=== PATIENT | female | born 1950 | race Caucasian/White ===

== ENCOUNTER 2020-01-22 08:33 | Outpatient (REF) | payer MEDICARE, SELFPAY ==
--- NOTE | 2020-01-22 | US_ITS ---
EXAMINATION: THYROID ULTRASOUND CLINICAL INFORMATION: Multinodular goiter COMPARISON: Previous exam April 2018 TECHNIQUE: Grayscale and color imaging of the thyroid gland using a linear transducer FINDINGS: The right lobe measures 4.2 x 1.2 x 1.6 cm, volume 4.2 mL. The right lobe is normal in size. Thyroid echotexture is heterogeneous. Thyroid vascularity is normal. The left lobe measures 4.5 x 1 x 1.8 cm, volume 4.2 mL. The left lobe is normal in size. Thyroid echotexture is heterogeneous. Thyroid vascularity is slightly increased. The thyroid isthmus measures 0.3 cm. Right: There are multiple nodules seen. Comparison of nodules with prior exam is difficult. The 4 largest nodules are measured. There is a heterogeneous nodule in the inferior lobe. This measures 1.1 x 0.6 x 0.7 cm. This measured 0.7 x 0.9 x 0.7 cm on previous exam. This is heterogeneous and hypoechoic, has smooth margin, question calcification and positive intranodular flow. There is a 1 x 0.4 x 0.7 cm heterogeneous nodule in the mid lobe. This has smooth margin, no calcification and positive intranodular flow. This was not appreciated on previous exam. There is a 1 x 0.3 x 0.5 cm heterogeneous nodule in the upper lobe. This has irregular margin, no calcification and positive intranodular flow. There is a 0.5 x 0.3 x 0.5 cm heterogeneous nodule in the upper lobe. This has smooth margin, no calcification and positive intranodular flow. This was not appreciated on the previous exam. Isthmus: There is a 0.5 x 0.2 x 0.5 cm hypoechoic nodule in the left side of the isthmus. This has smooth margin, no calcification and positive intranodular flow. This is newly appreciated compared to previous exam. Left: There are multiple nodules seen. Comparison of nodules with prior exam is difficult. The 4 largest nodules are measured. There is a 0.7 x 0.4 x 0.6 cm heterogeneous nodule in the upper lobe. This has smooth margin, no calcification and positive intranodular flow. This was not appreciated on the previous exam. There is a 0.9 x 0.5 x 0.7 cm heterogeneous nodule in the upper lobe. This has slightly irregular margin, calcification and positive intranodular flow. This was not appreciated on the previous exam. There is a 0.6 x 0.3 x 0.6 cm heterogeneous nodule in the mid lobe. This has slightly irregular margin, calcification and positive intranodular flow. This was not appreciated on the previous exam. There is a 0.9 x 0.5 x 0.8 cm complex cystic nodule in the inferior lobe. This has smooth margin, no calcification and positive intranodular flow. This measured 0.8 x 0.5 x 0.6 cm on prior exam and may be minimally increased in size. IMPRESSION: Normal-sized heterogeneous thyroid gland with multiple bilateral nodules. The left lobe is slightly hypervascular. Comparison with previous exam is difficult and there are multiple bilateral newly appreciated nodules compared to the prior exam.
== END 2020-01-22 08:34 | disposition home or self-care (01) ==
LOC: HO.US 08:33
PROVIDERS: Visit Provider Internal Medicine
DX: E04.2 Nontoxic multinodular goiter (principal)
CPT/HCPCS: 76536

== ENCOUNTER 2020-02-04 13:03 | Outpatient (REF) | payer MEDICARE, SELFPAY | END 2020-02-04 13:04 | disposition home or self-care (01) | LOC: HO.LAB 13:03 | PROVIDERS: Visit Provider Internal Medicine | DX: Z20.828 Contact with and (suspected) exposure to other viral communicable diseases (principal) | CPT/HCPCS: 87635 ==

== ENCOUNTER 2020-03-07 16:59 | Emergency (ER) | payer MEDICARE, SELFPAY ==
--- NOTE | 2020-03-07 17:03 | ECG_ITS ---
Test Reason : CP Blood Pressure : / mmHG Vent. Rate : 070 BPM Atrial Rate : 070 BPM P-R Int : 162 ms QRS Dur : 078 ms QT Int : 378 ms P-R-T Axes : 053 042 056 degrees QTc Int : 408 ms Normal sinus rhythm Normal ECG When compared with ECG of 24-AUG-2004 08:32, No significant change was found Referred By: Generic ED Physician Electronically Signed By:GI WHITE MD
[2020-03-07 17:25] VITALS: BP 152/77; PULSE 76; RESP 18; TEMP 36.6; O2SAT 100; BMI 60.5
[2020-03-07 18:02] VITALS: BP 137/88; PULSE 76; O2SAT 98
--- NOTE | 2020-03-07 18:29 | XR_ITS ---
EXAMINATION: XR CHEST CLINICAL INFORMATION: Chest pain COMPARISON: None TECHNIQUE: Frontal view of the chest was obtained. FINDINGS: Multiple wires overlie the chest. Lungs are clear without consolidation, pleural effusion or pneumothorax. Cardiomediastinal silhouette is unremarkable. XR/XR chest 1V IMPRESSION: No acute cardiopulmonary process.
[2020-03-07] MEDS: Aspirin 81 MG TAB.CHEW 324 MG PO (18:36)
--- NOTE | 2020-03-07 18:41 | ED.CHESTPAIN ---
HPI - Chest Pain General Chief Complaint: Chest Pain Stated Complaint: Chest pain Time Seen by Provider: 03/07/20 18:28 Source: patient Mode of arrival: ambulatory Limitations: no limitations History of Present Illness HPI narrative: patient history of hypertension no known coronary artery disease no history of gastritis been complaining of epigastric substernal pain for last 1 week with nausea. No diaphoresis no shortness of breath no known history of gastriti, s patient had a stress test in 2013-grecia [facility] complaint: chest pain Onset (ago): week(s) (1) Timing of current episode: episodic Prior episodes: No Onset: during rest Pain location: substernal and epigastric Pain radiation: none Severity: mild Quality: aching Relieving factors: nothing Exacerbating factors: nothing Context: recent illness Associated symptoms: nausea Treatment prior to arrival: none Related Data Previous Rx's Medication Instructions Recorded omeprazole 40 mg PO DAILY #20 cap 03/07/20 Allergies Allergy/AdvReac Type Severity Reaction Status Date / Time suvorexant [Belsomra] AdvReac Unknown increased Verified 03/07/20 17:25 anxiety Review of Systems Review of Systems: REVIEW OF SYSTEMS: Pertinent positives and negatives are stated above in the history. GEN: no fevers, chills, fatigue HEENT: no nasal congestion, sore throat, ear pain NEURO: no headache, dizziness, focal weakness PULM: no cough, shortness of breath CV: no palpitations, LE edema ABD: no abdominal pain, nausea, vomiting, diarrhea : no dysuria, urgency, frequency SKIN: no rash ROS otherwise negative x 10 PMFSH Past Medical History Medical History Anxiety High cholesterol HTN (hypertension) Social History Social History Alcohol intake: current Alcohol intake frequency: a few times a week Alcohol type: wine Smoking Status: Never smoker Use of substances other than those prescribed or required for medical reasons: No Advance Directives: No Advance Directives Information Provided: No Physical Exam Vital Signs: Vital Signs: Last Vital Signs Temp 98.2 F 03/07/20 19:20 Pulse 74 03/07/20 19:20 Resp 16 03/07/20 19:20 BP 149/78 H 03/07/20 19:20 Pulse Ox 96 11/23/20 19:20 Body Mass Index 60.5 Appearance: Alert. Oriented X3. No acute distress. Eyes: Pupils equal, round and reactive to light. ENT: Pharynx normal. Neck: Normal inspection. Neck supple. CVS: Normal heart rate and rhythm. Pulses normal. Respiratory: No respiratory distress. Breath sounds normal. Abdomen: Soft and nontender. Skin: Skin warm and dry. Normal skin color. Normal skin turgor. Extremities: No lower extremity edema. Good range of movement Neuro: Oriented X 3. No motor deficit. No sensory deficit. MDM - Chest Pain MDM Narrative Medical decision making narrative: patient with chest pain of 1 week duration high sensitive troponin negative no acute EKG changes etiology of pain is not very clear likely gastritis patient advised to follow-up with primary care doctor/certified athletic trainer for further workup including echo Differential Diagnosis Differential diagnosis: Likely atypical chest pain, costochondritis, chest pain and biliary colic Medical Records Data Attestation: I reviewed the patient's medical records. Lab Data Attestation: I reviewed the patient's lab results. Result diagrams: 03/07/20 18:40 03/07/20 18:40 Labs: Lab Results 03/07/20 03/07/20 03/07/20 Range/Units 18:40 18:40 18:40 WBC 7.4 (4.8-10.8) X10*3/uL RBC 4.22 (4.20-5.50) X10*6/uL Hgb 12.9 (12.0-16.0) g/dl Hct 39.3 (37-47) % MCV 93.1 (80-98) fL MCH 30.6 (27.0-33.0) pg MCHC 32.8 (31.0-35.0) g/dl RDW 12.0 (11.0-16.0) % Plt Count 301 (160-400) X10*3/uL MPV 9.5 (9.4-12.3) fL Immature Gran % (Auto) 0.3 (0.0-0.4) % Neut % (Auto) 68.3 (45-73) % Lymph % (Auto) 23.2 (20-40) % [place] % (Auto) 7.6 (2-11) % Eos % (Auto) 0.5 (0-4) % Baso % (Auto) 0.1 (0-2) % Lymph # (Auto) 1.7 (1.2-4.9) X10*3/uL [place] # (Auto) 0.6 (0.1-1.2) X10*3/uL Eos # (Auto) 0.0 (0.0-0.4) X10*3/uL Baso # (Auto) 0.0 (0.0-0.2) X10*3/uL Abs Immat Gran (auto) 0.02 (0.00-0.03) X10*3/uL Absolute Neuts (auto) 5.1 (2.0-8.3) X10*3/uL Absolute Nucleated RBC 0.000 (0.0-0.012) X10*3/uL Nucleated RBC % (auto) 0.0 (0.0-0.2) /100WBC PT 11.1 (10.8-13.0) SEC INR 0.9 (0.9-1.1) APTT 32.3 (24.1-38.0) SEC Sodium 138 (135-145) mmol/L Potassium 4.9 (3.3-5.1) mmol/l Chloride 105 (96-108) mmol/L Carbon Dioxide 26 (22-29) mmol/L Anion Gap 12 (12-20) BUN 11 (9-16) mg/dL Creatinine 0.64 (0.5-1.4) mg/dL Estim Creat Clear Calc 120.6 Estimated GFR > 60 Random Glucose 90 (60-115) mg/dL Calcium 9.8 (8.4-10.2) mg/dL Troponin I High Sens (<3.5-17.0) ng/L 03/07/20 Range/Units 18:41 WBC (4.8-10.8) X10*3/uL RBC (4.20-5.50) X10*6/uL Hgb (12.0-16.0) g/dl Hct (37-47) % MCV (80-98) fL MCH (27.0-33.0) pg MCHC (31.0-35.0) g/dl RDW (11.0-16.0) % Plt Count (160-400) X10*3/uL MPV (9.4-12.3) fL Immature Gran % (Auto) (0.0-0.4) % Neut % (Auto) (45-73) % Lymph % (Auto) (20-40) % [place] % (Auto) (2-11) % Eos % (Auto) (0-4) % Baso % (Auto) (0-2) % Lymph # (Auto) (1.2-4.9) X10*3/uL [place] # (Auto) (0.1-1.2) X10*3/uL Eos # (Auto) (0.0-0.4) X10*3/uL Baso # (Auto) (0.0-0.2) X10*3/uL Abs Immat Gran (auto) (0.00-0.03) X10*3/uL Absolute Neuts (auto) (2.0-8.3) X10*3/uL Absolute Nucleated RBC (0.0-0.012) X10*3/uL Nucleated RBC % (auto) (0.0-0.2) /100WBC PT (10.8-13.0) SEC INR (0.9-1.1) APTT (24.1-38.0) SEC Sodium (135-145) mmol/L Potassium (3.3-5.1) mmol/l Chloride (96-108) mmol/L Carbon Dioxide (22-29) mmol/L Anion Gap (12-20) BUN (9-16) mg/dL Creatinine (0.5-1.4) mg/dL Estim Creat Clear Calc Estimated GFR Random Glucose (60-115) mg/dL Calcium (8.4-10.2) mg/dL Troponin I High Sens < 3.5 (<3.5-17.0) ng/L ECG Data ECG #1: Attestation: I personally reviewed and interpreted this ECG as follows: ECG interpretation date: 03/07/20 Interpretation: no sinus rhythm with heart rate of 70 normal axis normal intervals no acute ST T wave changes no acute ischemia Discharge Plan Discharge Clinical Impression: Chest pain, Gastritis Patient Disposition: Home, Self-Care Instructions: Chest Pain (ED), Gastritis (ED) Additional Instructions: take baby aspirin daily. Take medication for possible gastritis as a cause of chest pain. Follow-up with primary care doctor/certified athletic trainer for further workup within 2 weeks Prescriptions: New omeprazole 40 mg capsule,delayed release(DR/EC) 40 mg PO DAILY Qty: 20 RF: 0 Referrals: Ozzie Pope MD [Physician] - 1 week Interventions: ED Discharge Assessment Last Done: 03/07/20 20:51 Discharge Date/Time: 03/07/20 20:52
[2020-03-07 18:48] LABS: MANUAL DIFF FLAG NO
[2020-03-07 18:52] LABS: Basophils Percent Auto 0.1 % (0-2); Eosinophils Percent Auto 0.5 % (0-4); Hematocrit 39.3 % (37-47); Hemoglobin 12.9 g/dl (12.0-16.0); Imm Gran Abs Auto 0.02 X10*3/uL (0.00-0.03); Imm Gran Pct Auto 0.3 % (0.0-0.4); Lymphocytes Absolute Auto 1.7 X10*3/uL (1.2-4.9); Lymphocytes Percent Auto 23.2 % (20-40); Mean Corpuscular HGB Conc 32.8 g/dl (31.0-35.0); Mean Corpuscular Hemoglobin 30.6 pg (27.0-33.0); Mean Corpuscular Volume 93.1 fL (80-98); Mean Platelet Volume 9.5 fL (9.4-12.3); Monocytes Absolute Auto 0.6 X10*3/uL (0.1-1.2); Monocytes Percent Auto 7.6 % (2-11); Neutrophils Absolute Auto 5.1 X10*3/uL (2.0-8.3); Neutrophils Percent Auto 68.3 % (45-73); Platelet Count 301 X10*3/uL (160-400); Red Blood Count 4.22 X10*6/uL (4.20-5.50); White Blood Count 7.4 X10*3/uL (4.8-10.8)
[2020-03-07 18:53] LABS: INTERNATIONAL NORM RATIO 0.9 (0.9-1.1); Prothrombin Time 11.1 SEC (10.8-13.0)
[2020-03-07 18:56] LABS: Partial Thromboplastin Time 32.3 SEC (24.1-38.0)
[2020-03-07 19:20] VITALS: BP 149/78; PULSE 74; RESP 16; TEMP 36.8; O2SAT 96
[2020-03-07 19:22] LABS: Anion Gap 12 (12-20); Blood Urea Nitrogen 11 mg/dL (9-16); Calcium 9.8 mg/dL (8.4-10.2); Carbon Dioxide 26 mmol/L (22-29); Chloride 105 mmol/L (96-108); Creatinine Clr Calc Pharmacy 120.6; Estimated Glomerular Filt Rate > 60; Glucose Random 90 mg/dL (60-115); Potassium 4.9 mmol/l (3.3-5.1); Sodium 138 mmol/L (135-145)
[2020-03-07 19:28] LABS: Troponin-I High Sensitivity < 3.5 ng/L (<3.5-17.0)
[2020-03-07] MEDS: Famotidine/PF 20 MG/2 ML VIAL IVPUSH (20:01)
== END 2020-03-07 20:52 | disposition home or self-care (01) ==
PROVIDERS: Emergency Provider Internal Medicine; PCP Internal Medicine
DX: K29.00 Acute gastritis without bleeding (principal); R07.89 Other chest pain; I10 Essential (primary) hypertension; Z79.899 Other long term (current) drug therapy
CPT/HCPCS: 36415; 71045; 80048; 84484; 85025; 85610; 85730; 93005; 96374; 99284

== ENCOUNTER 2020-03-08 12:15 | Outpatient (REF) | payer MEDICARE, SELFPAY | END 2020-03-08 12:16 | disposition home or self-care (01) | LOC: HO.LAB 12:15 | PROVIDERS: Visit Provider Internal Medicine | DX: Z20.828 Contact with and (suspected) exposure to other viral communicable diseases (principal) | CPT/HCPCS: C9803; U0003 ==

== ENCOUNTER → 2020-03-16 08:55 | Outpatient (REF) | payer MEDICARE, SELFPAY ==
--- NOTE | 2020-03-16 09:01 | CA_ITS ---
Acquisition Time: 2020-03-16 10:05:28 Total Exercise Time: 00:06:58 Test Indications: CHEST PAIN Medications: Protocol: EHSAN Max HR: 151 BPM 100% of Pred: 150 BPM Max BP: 140/080 mmHG Max Work Load: 8.4 METS Exercise stress test suing Ehsan protocol, total of 6 min 58 sec, METS 8.4 and MHR up to 100%. Pt tolerated well, denies any anginal sx. EKG with occ. PVC's. No ischemic changes seen during exercise or in recovery period. Normotensive response to exercise. Test reviewed with Dr. Pope. Referred By: Jose Alfredo Pandey Overread By: Reza Oliveira
== END ==
LOC: HO.CARD 08:55
PROVIDERS: PCP Internal Medicine; Visit Provider Internal Medicine
DX: R07.9 Chest pain, unspecified (principal)
CPT/HCPCS: 93017

== ENCOUNTER 2020-03-18 09:04 | Outpatient (REF) | payer MEDICARE, SELFPAY ==
[2020-03-18 10:39] LABS: Alanine Aminotransferase 21 U/L (0-31); Albumin Level 4.2 g/dL (3.5-5.0); Alkaline Phosphatase 111 U/L (39-117); Anion Gap 13 (12-20); Aspartate Amino Transferase 24 U/L (5-31); Bilirubin Total 0.5 mg/dL (0.0-1.0); Blood Urea Nitrogen 19 mg/dL (9-16); Calcium 9.1 mg/dL (8.4-10.2); Carbon Dioxide 23 mmol/L (22-29); Chloride 108 mmol/L (96-108); Estimated Glomerular Filt Rate > 60; Glucose Random 119 mg/dL (60-115); Potassium 4.5 mmol/l (3.3-5.1); Sodium 139 mmol/L (135-145); Total Protein 6.4 g/dL (6.5-8.0)
[2020-03-18 11:03] LABS: Vitamin D 25-OH Total 33.6 ng/mL (>30)
[2020-03-20 14:03] LABS: Calcium (PTHI) 9.8 mg/dL (8.6-10.4); PTHI 36 pg/mL (14-64)
== END 2020-03-18 09:05 | disposition home or self-care (01) ==
LOC: HO.LAB 09:04
PROVIDERS: PCP Internal Medicine; Visit Provider Internal Medicine
DX: M81.0 Age-related osteoporosis without current pathological fracture (principal); E55.9 Vitamin D deficiency, unspecified
CPT/HCPCS: 80053; 82306; 83970; 84100

== ENCOUNTER 2020-03-22 10:15 | Outpatient (REF) | payer MEDICARE, SELFPAY ==
[2020-03-22 11:12] LABS: Creatinine, mg/dL 39.54
[2020-03-22 11:37] LABS: Creatinine, 24Hr Urine 0.9 G/Day (1.0-2.0); Total Volume 24 Hour Urine 2225 mL
[2020-03-24 17:08] LABS: Calcium, 24 Hr Urine 120 mg/24 h; Calcium/Creatinine Ratio 132 mg/g creat (30-275); Creatinine 24Hr Urine 0.91 g/24 h (0.50-2.15)
== END 2020-03-22 10:16 | disposition home or self-care (01) ==
LOC: HO.LNP 10:15
PROVIDERS: Visit Provider Internal Medicine
DX: M81.0 Age-related osteoporosis without current pathological fracture (principal)
CPT/HCPCS: 82340; 82570

== ENCOUNTER 2020-04-18 10:40 | Outpatient (REF) | payer MEDICARE, SELFPAY | END 2020-04-18 10:41 | disposition home or self-care (01) | LOC: HO.LAB 10:40 | PROVIDERS: Visit Provider Internal Medicine | DX: Z20.828 Contact with and (suspected) exposure to other viral communicable diseases (principal) | CPT/HCPCS: 36415; C9803; U0003 ==

== ENCOUNTER 2020-04-29 09:27 | Outpatient (REF) | payer MEDICARE, SELFPAY | END 2020-04-29 09:28 | disposition home or self-care (01) | LOC: HO.LAB 09:27 | PROVIDERS: Visit Provider Internal Medicine | DX: Z20.822 Contact with and (suspected) exposure to COVID-19 (principal) | CPT/HCPCS: 36415; C9803; U0003 ==

== ENCOUNTER → 2020-05-04 14:03 | Outpatient (BNVA) | payer MEDICARE, SELFPAY | PROVIDERS: PCP Internal Medicine; Visit Provider Internal Medicine | DX: R07.2 Precordial pain (principal); I10 Essential (primary) hypertension; E78.5 Hyperlipidemia, unspecified | CPT/HCPCS: 99202 ==

== ENCOUNTER 2020-05-13 08:52 | Outpatient (REF) | payer MEDICARE, SELFPAY ==
[2020-05-13 09:47] LABS: MANUAL DIFF FLAG NO
[2020-05-13 09:56] LABS: Basophils Percent Auto 0.2 % (0-2); Eosinophils Absolute Auto 0.1 X10*3/uL (0.0-0.4); Eosinophils Percent Auto 1.1 % (0-4); Hematocrit 41.7 % (37-47); Hemoglobin 13.6 g/dl (12.0-16.0); Imm Gran Abs Auto 0.01 X10*3/uL (0.00-0.03); Imm Gran Pct Auto 0.2 % (0.0-0.4); Lymphocytes Absolute Auto 1.6 X10*3/uL (1.2-4.9); Lymphocytes Percent Auto 33.8 % (20-40); Mean Corpuscular HGB Conc 32.6 g/dl (31.0-35.0); Mean Corpuscular Hemoglobin 30.6 pg (27.0-33.0); Mean Corpuscular Volume 93.7 fL (80-98); Monocytes Absolute Auto 0.4 X10*3/uL (0.1-1.2); Monocytes Percent Auto 7.5 % (2-11); Neutrophils Absolute Auto 2.7 X10*3/uL (2.0-8.3); Neutrophils Percent Auto 57.2 % (45-73); Platelet Count 331 X10*3/uL (160-400); Red Blood Count 4.45 X10*6/uL (4.20-5.50); Red Cell Distribution Width 12.1 % (11.0-16.0); White Blood Count 4.7 X10*3/uL (4.8-10.8)
[2020-05-13 10:17] LABS: Alanine Aminotransferase 35 U/L (0-31); Albumin Level 4.3 g/dL (3.5-5.0); Alkaline Phosphatase 72 U/L (39-117); Anion Gap 11 (12-20); Aspartate Amino Transferase 32 U/L (5-31); Bilirubin Total 0.9 mg/dL (0.0-1.0); Blood Urea Nitrogen 13 mg/dL (9-16); Carbon Dioxide 28 mmol/L (22-29); Chloride 106 mmol/L (96-108); Cholesterol 147 mg/dL; Estimated Glomerular Filt Rate > 60; Glucose Fasting 89 mg/dL (60-99); HDL Cholesterol 47 mg/dL; LDL Cholesterol Calculated 81 mg/dl; Potassium 4.3 mmol/l (3.3-5.1); Sodium 141 mmol/L (135-145); Total Protein 6.2 g/dL (6.5-8.0); Triglycerides 98 mg/dL
[2020-05-13 10:26] LABS: Estimated Average Glucose 94 mg/dL; Hemoglobin A1c % 4.9 %
[2020-05-13 10:40] LABS: Free T4 (Free Thyroxine) 0.77 ng/dL (0.71-1.85); Thyroid Stimulating Hormone 1.04 uIU/mL (0.32-4.0)
== END 2020-05-13 08:53 | disposition home or self-care (01) ==
LOC: HO.LAB 08:52
PROVIDERS: PCP Internal Medicine; Visit Provider Internal Medicine
DX: I10 Essential (primary) hypertension (principal); E78.00 Pure hypercholesterolemia, unspecified; R73.01 Impaired fasting glucose; E04.2 Nontoxic multinodular goiter
CPT/HCPCS: 36415; 80053; 80061; 83036; 84439; 84443; 85025

== ENCOUNTER → 2020-06-01 13:52 | Outpatient (REF) | payer MEDICARE, SELFPAY ==
--- NOTE | 2020-06-01 13:54 | CA_ITS ---
Transthoracic Echocardiogram Patient (Last, First, Middle): Elham Almonte K Gender: Female Date of : 1950 Age: 69 Procedure Date: 06/01/2020 Procedure Type: Transthoracic Echocardiogram Location: OP Height: 160.02 cm Weight: 65.77 kg BSA: 1.69 m2 Heart Rate: bpm Warehouse Processor: ANDREINA Referring MD: Morteza Dorsey MD Wrapper Hands Sprayer: Ozzie Pope MD Symptoms: R07.2 - Precordial pain Study Quality: Good ECG Rhythm: Sinus Conclusions: - 1. Normal LV systolic function grade 1 diastolic dysfunction 2. Normal cardiac valvular Doppler 3. Normal RV systolic pressure 4. No pericardial effusion Findings Left Ventricle Normal left ventricular size, thickness, and systolic function. The visually estimated ejection fraction is between 60-65%. Spectral Doppler is indicative of an impaired relaxation filling pattern. E/E prime ratio is <8, consistent with normal filling pressures. Evidence suggests grade I (mild) diastolic dysfunction. Right Ventricle Normal right ventricular cavity size and systolic function. Atria Both atria are normal in size. There is no evidence of interatrial shunt. Aortic Valve Normal aortic valve structure and function. There is no aortic valve stenosis. There is no aortic valve regurgitation. Mitral Valve Normal mitral valve structure and function. There is trace mitral valve regurgitation. There is no mitral valve stenosis. Pulmonic Valve The pulmonic valve was not well visualized. Tricuspid Valve Likely normal tricuspid valve structure and function. There is trace tricuspid valve regurgitation. The right ventricular systolic pressure is normal. The right ventricular systolic pressure is 18 mmHg. There is no evidence of pulmonary hypertension. Great Vessels All visible segments of the aorta are normal in size. Small plaque is seen in the sino tubular ridge. Venous The inferior vena cava is normal in size and collapses greater than 50% with inspiration. Pericardium/Pleural There is no evidence of pericardial effusion. Prior Study Comparison No previous study in the last 5 years for comparison Measurements 2D Linear Measurements IVSd: 0.93 0.6-0.9/0.6-1.0 cm LVIDd: 3.91 3.9-5.3/4.2-5.9 cm LVIDd Index: 2.31 2.4-3.2/2.2-3.1 cm/m2 LVIDs: 2.24 2.0-3.6 cm LVPWd: 0.83 0.7-1.1 cm Ao Root: 3.40 2.1-3.5 cm LA Diam: 3.10 2.7-3.8/3.0-4.0 cm LAIDs Index: 1.83 1.5-2.3 cm/m2 LV Mass: 127.41 67-162/88-224 g LV Mass Index: 75.39 43-95/49-115 g/m2 LVOT Diam: 2.20 3.0+(-)1.3 cm 2D Systolic Function EF 4C: 66.30 >55% EF 2C: 53.90 >55% EF BiP: 60.90 >55% Mitral Valve MV Pk E: 0.56 MV PK A: 0.69 MV Decel Time: 332.00 E/A: 0.80 E'Lateral: 12.60 E'Medial: 14.10 E/E' Med: 4.00 E/E' Lat: 4.50 PHT: 97.00 MVA PHT: 2.27 Decel [place]: 1.69 Aortic Valve AoV Pk Willian: 1.31 AoV Mn Willian: 0.83 AoV VTI: 0.28 AoV Pk Grad: 7.00 Aov Mn Grad: 3.00 ALAN Cont.VTI: 3.06 LVOT LVOT Pk Willian: 1.22 LVOT Mn Willian: 0.75 LVOT VTI: 0.23 LVOT Pk Grad: 6.00 LVOT Mn Grad: 3.00 LVOT Diam: 2.20 LVOT Area: 3.80 Diastolic Function MV Pk E: 0.56 MV Pk A: 0.69 E/A: 0.80 E'Medial: 14.10 E/E' Med: 4.00 E' Laterial: 12.60 E/E' Lat: 4.50 Tricuspid Valve TR Pk Willian: 1.96 TR Pk Grad: 15.00 RA Press: 3.00 RVSP: 18.00 Great Vessels Aorta Ao Root-2D: 3.40 2.0-3.7 cm Ao Asc: 3.80 2.1-3.4 cm Pulmonary Valve PV Pk Willian: 0.91 Peak PV Grad: 3.00 Updated in Other Vendor System with Status of Final Ozzie Pope MD electronically signed on 06/02/2020 1:10:54 PM with status of Final
== END ==
LOC: HO.CARD 13:52
PROVIDERS: PCP Internal Medicine; Visit Provider Internal Medicine
DX: R07.2 Precordial pain (principal)
CPT/HCPCS: 93306

== ENCOUNTER → 2020-06-07 08:16 | Outpatient (BNVA) | payer MEDICARE, SELFPAY | PROVIDERS: PCP Internal Medicine; Visit Provider Internal Medicine | DX: R07.2 Precordial pain (principal); I10 Essential (primary) hypertension; E78.5 Hyperlipidemia, unspecified | CPT/HCPCS: Q3014 ==

== ENCOUNTER → 2020-07-04 10:07 | Outpatient (BNVA) | payer MEDICARE, SELFPAY | PROVIDERS: PCP Internal Medicine; Visit Provider Internal Medicine ==

== ENCOUNTER 2020-07-18 15:58 | Outpatient (REF) | payer MEDICARE, SELFPAY ==
[2020-07-19 11:19] LABS: SARS COV2 PCR INHOUSE NEGATIVE (Negative)
== END 2020-07-18 15:59 | disposition home or self-care (01) ==
LOC: HO.LAB 15:58
PROVIDERS: Visit Provider Internal Medicine
DX: Z20.822 Contact with and (suspected) exposure to COVID-19 (principal)
CPT/HCPCS: C9803; U0003

== ENCOUNTER → 2020-08-29 09:59 | Outpatient (BNVA) | payer MEDICARE, SELFPAY | PROVIDERS: PCP Internal Medicine; Visit Provider Internal Medicine | DX: Z13.89 Encounter for screening for other disorder (principal) | CPT/HCPCS: Q3014 ==

== ENCOUNTER 2020-09-08 09:18 | Outpatient (REF) | payer MEDICARE, SELFPAY ==
[2020-09-08 10:33] LABS: MANUAL DIFF FLAG NO
[2020-09-08 10:37] LABS: Appearance Urine CLOUDY; Color Urine DARK YELLOW; Glucose Urine UA NEG (NEG); Leukocyte Esterase Urine 2+ (NEG); Nitrite Urine NEG (NEG); UACC Culture Trigger YES; Urine Blood NEG (NEG); Urine Ketones 15 MG/DL (NEG); Urine Protein TRACE MG/DL (NEG-TRACE)
[2020-09-08 10:47] LABS: Bacteria Urine 2+ /LPF; Eosinophils Percent Auto 0.1 % (0-4); Hematocrit 41.6 % (37-47); Hemoglobin 13.8 g/dl (12.0-16.0); Imm Gran Abs Auto 0.02 X10*3/uL (0.00-0.03); Imm Gran Pct Auto 0.3 % (0.0-0.4); Lymphocytes Absolute Auto 1.6 X10*3/uL (1.2-4.9); Lymphocytes Percent Auto 21.4 % (20-40); Mean Corpuscular HGB Conc 33.2 g/dl (31.0-35.0); Mean Corpuscular Hemoglobin 30.9 pg (27.0-33.0); Mean Corpuscular Volume 93.1 fL (80-98); Mean Platelet Volume 9.7 fL (9.4-12.3); Monocytes Absolute Auto 0.5 X10*3/uL (0.1-1.2); Monocytes Percent Auto 6.8 % (2-11); Mucus Urine TRACE /LPF; Neutrophils Absolute Auto 5.4 X10*3/uL (2.0-8.3); Neutrophils Percent Auto 71.4 % (45-73); Platelet Count 362 X10*3/uL (160-400); RBC Urine 0 /HPF (0); Red Blood Count 4.47 X10*6/uL (4.20-5.50); Red Cell Distribution Width 12.5 % (11.0-16.0); Squamous Epithelial Cell Urine 4+ /LPF; White Blood Count 7.6 X10*3/uL (4.8-10.8)
[2020-09-08 11:09] LABS: Alanine Aminotransferase 32 U/L (0-31); Albumin Level 4.4 g/dL (3.5-5.0); Alkaline Phosphatase 77 U/L (39-117); Anion Gap 15 (12-20); Aspartate Amino Transferase 33 U/L (5-31); Bilirubin Total 0.9 mg/dL (0.0-1.0); Blood Urea Nitrogen 10 mg/dL (9-16); Calcium 9.8 mg/dL (8.4-10.2); Carbon Dioxide 25 mmol/L (22-29); Chloride 103 mmol/L (96-108); Cholesterol 159 mg/dL; Estimated Glomerular Filt Rate > 60; Glucose Fasting 85 mg/dL (60-99); HDL Cholesterol 62 mg/dL; LDL Cholesterol Calculated 81 mg/dl; Potassium 4.6 mmol/L (3.3-5.1); Sodium 138 mmol/L (135-145); Total Protein 6.6 g/dL (6.5-8.0); Triglycerides 80 mg/dL
[2020-09-08 11:35] LABS: Free T4 (Free Thyroxine) 0.94 ng/dL (0.71-1.85); Thyroid Stimulating Hormone 0.87 uIU/mL (0.32-4.0); Vitamin D 25-OH Total 35.7 ng/mL (>30)
== END 2020-09-08 09:19 | disposition home or self-care (01) ==
LOC: HO.LAB 09:18
PROVIDERS: PCP Internal Medicine; Visit Provider Internal Medicine
DX: E78.00 Pure hypercholesterolemia, unspecified (principal); I10 Essential (primary) hypertension; E55.9 Vitamin D deficiency, unspecified; M81.0 Age-related osteoporosis without current pathological fracture; E04.2 Nontoxic multinodular goiter
CPT/HCPCS: 36415; 80053; 80061; 81001; 81003; 82306; 84439; 84443; 85025; 87086

== ENCOUNTER 2021-01-13 08:49 | Outpatient (REF) | payer MEDICARE, SELFPAY ==
[2021-01-13 09:44] LABS: Alanine Aminotransferase 23 U/L (0-31); Albumin Level 4.2 g/dL (3.5-5.0); Alkaline Phosphatase 65 U/L (39-117); Anion Gap 9 (12-20); Aspartate Amino Transferase 25 U/L (5-31); Bilirubin Total 0.9 mg/dL (0.0-1.0); Blood Urea Nitrogen 10 mg/dL (9-16); Calcium 9.3 mg/dL (8.4-10.2); Carbon Dioxide 27 mmol/L (22-29); Chloride 108 mmol/L (96-108); Cholesterol 179 mg/dL; Estimated Glomerular Filt Rate > 60; Glucose Fasting 91 mg/dL (60-99); HDL Cholesterol 51 mg/dL; LDL Cholesterol Calculated 102 mg/dl; Potassium 4.2 mmol/L (3.3-5.1); Sodium 140 mmol/L (135-145); Total Protein 6.4 g/dL (6.5-8.0); Triglycerides 134 mg/dL
[2021-01-13 09:55] LABS: Free T4 (Free Thyroxine) 0.74 ng/dL (0.71-1.85); Thyroid Stimulating Hormone 1.45 uIU/mL (0.32-4.0); Vitamin D 25-OH Total 35.6 ng/mL (>30)
== END 2021-01-13 08:50 | disposition home or self-care (01) ==
LOC: HO.LAB 08:49
PROVIDERS: PCP Internal Medicine; Visit Provider Internal Medicine
DX: E78.00 Pure hypercholesterolemia, unspecified (principal); I10 Essential (primary) hypertension; R73.01 Impaired fasting glucose; E04.2 Nontoxic multinodular goiter; E55.9 Vitamin D deficiency, unspecified; M81.0 Age-related osteoporosis without current pathological fracture
CPT/HCPCS: 36415; 80053; 80061; 82306; 84439; 84443

== ENCOUNTER 2021-05-22 12:15 | Outpatient (REF) | payer MEDICARE, SELFPAY ==
[2021-05-22 13:07] LABS: COVID-19 Test Negative (Negative); IDNOW Serial# 16C4AD1C
== END 2021-05-22 12:16 | disposition home or self-care (01) ==
LOC: HO.LAB 12:15
PROVIDERS: Visit Provider Internal Medicine
DX: Z20.822 Contact with and (suspected) exposure to COVID-19 (principal)
CPT/HCPCS: 87635; C9803

== ENCOUNTER 2021-06-26 08:08 | Outpatient (REF) | payer MEDICARE, SELFPAY ==
[2021-06-26 08:29] LABS: MANUAL DIFF FLAG NO
[2021-06-26 08:40] LABS: Eosinophils Absolute Auto 0.1 X10*3/uL (0.0-0.4); Hematocrit 41.1 % (37.0-47.0); Hemoglobin 13.6 g/dl (12.0-16.0); Imm Gran Abs Auto 0.01 X10*3/uL (0.00-0.03); Imm Gran Pct Auto 0.2 % (0.0-0.4); Lymphocytes Absolute Auto 1.9 X10*3/uL (1.2-4.9); Lymphocytes Percent Auto 37.2 % (20-40); Mean Corpuscular HGB Conc 33.1 g/dl (31.0-35.0); Mean Corpuscular Hemoglobin 31.6 pg (27.0-33.0); Mean Corpuscular Volume 95.6 fL (80.0-98.0); Mean Platelet Volume 9.2 fL (9.4-12.3); Monocytes Absolute Auto 0.4 X10*3/uL (0.1-1.2); Monocytes Percent Auto 8.5 % (2-11); Neutrophils Absolute Auto 2.7 x10*3/uL (2.0-8.3); Neutrophils Percent Auto 53.1 % (45-73); Platelet Count 324 X10*3/uL (160-400); Red Cell Distribution Width 12.3 % (11.0-16.0); White Blood Count 5.1 X10*3/uL (4.8-10.8)
[2021-06-26 09:34] LABS: Free T4 (Free Thyroxine) 0.69 ng/dL (0.71-1.85); Vitamin D 25-OH Total 35.3 ng/mL (>30)
[2021-06-26 09:35] LABS: Alanine Aminotransferase 24 U/L (0-31); Alkaline Phosphatase 78 U/L (39-117); Anion Gap 11 (12-20); Aspartate Amino Transferase 27 U/L (5-31); Bilirubin Total 0.3 mg/dL (0.0-1.0); Blood Urea Nitrogen 15 mg/dL (9-16); Calcium 9.2 mg/dL (8.4-10.2); Carbon Dioxide 28 mmol/L (22-29); Chloride 109 mmol/L (96-108); Cholesterol 179 mg/dL; Estimated Glomerular Filt Rate > 60; Glucose Fasting 98 mg/dL (60-99); HDL Cholesterol 58 mg/dL; LDL Cholesterol Calculated 107 mg/dl; Sodium 143 mmol/L (135-145); Total Protein 6.4 g/dL (6.5-8.0); Triglycerides 72 mg/dL
== END 2021-06-26 08:09 | disposition home or self-care (01) ==
LOC: HO.LAB 08:08
PROVIDERS: PCP Internal Medicine; Visit Provider Internal Medicine
DX: E03.9 Hypothyroidism, unspecified (principal); E78.00 Pure hypercholesterolemia, unspecified; I10 Essential (primary) hypertension; E55.9 Vitamin D deficiency, unspecified
CPT/HCPCS: 36415; 80053; 80061; 82306; 84439; 84443; 85025

== ENCOUNTER 2021-09-26 10:23 | Outpatient (REF) | payer MEDICARE, SELFPAY ==
--- NOTE | ~2021-09-26 | MM_ITS ---
EXAMINATION: BONE DENSITOMETRY CLINICAL INDICATION: Osteoporosis. COMPARISON: Previous BD dated 09/25/2019 and baseline BD dated 08/02/2017. TECHNIQUE: Using a [employer]Waters DXA System (software version: 13.1) manufactured by [employer], dual-energy x-ray absorptiometry was performed of the lumbar spine and left hip. The images are of good technical quality. Summary results are attached. FINDINGS: AP SPINE L1-L4: Current: BMD 1.226 g/cm2, Z-score 2.0, T-score 0.4, normal, 0.2% decrease from previous, 4.5% increase from baseline (<5% change is not significant). Prior: BMD 1.229 g/cm2. Baseline: BMD 1.173 g/cm2. LEFT FEMUR, NECK: Current: BMD 0.706 g/cm2, Z-score -0.6, T-score -2.4, osteopenia. Prior: BMD 0.717 g/cm2. Baseline: BMD 0.698 g/cm2. LEFT FEMUR, TOTAL: Current: BMD 0.877 g/cm2, Z-score 0.5, T-score -1.0, normal, 3.1% increase from previous, 0.8% increase from baseline (<5% change is not significant). Prior: BMD 0.851 g/cm2. Baseline: BMD 0.870 g/cm2. IDENTIFIED RISK FACTORS: Menopause. HISTORY OF FRACTURE: Humerus. MEDICATIONS: Calcium, vitamin D. MM/XR DEXA axial skeleton IMPRESSION: 1. DIAGNOSIS: Osteopenia based on the lowest T-score value of -2.4 in the femoral neck applying World Health Organization criteria. 2. 10-YEAR FRACTURE RISK PREDICTION, FRAX: Major osteoporotic fracture (clinical spine, forearm, hip or shoulder) 15.1%. Hip fracture 4.0%. 3. Treatment Recommendations: NOF guidelines recommend consideration for treatment in postmenopausal women and men age 50 and older presenting with the following: -A hip or vertebral (clinical or morphometric) fracture. -T-score less than or equal to -2.5 at the femoral neck or spine after appropriate evaluation to exclude secondary causes. -Low bone mass at the hip or spine and a 10-year fracture probability by FRAX of greater than or equal to 3% for hip fracture or greater than or equal to 20% for major osteoporotic fracture based on the [place] adapted WHO algorithm. 4. Other Recommendations: All treatment decisions require clinical judgment and consideration of individual patient factors, including patient preferences, comorbidities, previous drug use, risk factors not captured in the FRAX model (e.g. frailty, falls, vitamin D deficiency, increased bone turnover, interval significant decline in bone density) and possible under or overestimation of fracture risk by FRAX. Additional medical evaluation for secondary cause of low bone mineral density may be appropriate. FUTURE SCAN RECOMMENDATION: People with diagnosed cases of osteoporosis or at high risk for fracture should have regular bone mineral density tests. For patients eligible for Medicare, routine testing is allowed once every 2 years. The testing frequency can be increased to one year for patients who have rapidly progressing disease, those who are receiving or discontinuing medical therapy to restore bone mass, or have additional risk factors.
== END 2021-09-26 10:24 | disposition home or self-care (01) ==
LOC: HO.MAMMO 10:23
PROVIDERS: Visit Provider Internal Medicine
DX: Z13.820 Encounter for screening for osteoporosis (principal); M81.0 Age-related osteoporosis without current pathological fracture; Z78.0 Asymptomatic menopausal state
CPT/HCPCS: 77080

== ENCOUNTER 2021-09-28 13:09 | Outpatient (REF) | payer MEDICARE, SELFPAY ==
--- NOTE | ~2021-09-28 | US_ITS ---
EXAMINATION: US THYROID CLINICAL INFORMATION: Nontoxic multinodular goiter. COMPARISON: US thyroid 01/22/2020 and 04/24/2018. US-guided thyroid biopsy 01/29/2019. TECHNIQUE: Linear transducer grayscale and color Doppler examination with attention to the region of the thyroid. FINDINGS: SIZE: Measurements of the thyroid lobes and nodules are given in sagittal, anteroposterior and transverse dimensions respectively. Right Thyroid Lobe: 4.3 x 1.3 x 1.4 cm, volume 4.1 mL. Previously 4.2 x 1.2 x 1.6 cm, volume 4.2 mL. Parenchyma: The gland echotexture is heterogeneous. Thyroid vascularity is normal. Left Thyroid Lobe: 3.8 x 1.2 x 1.5 cm, volume 3.6 mL. Previously 4.5 x 1.0 x 1.8 cm, volume 4.2 mL. Parenchyma: The gland echotexture is heterogeneous. Thyroid vascularity is normal. Isthmus: 0.22 cm in maximum AP dimension. Previously 0.30 cm. Estimated total number of nodules greater than or equal to 1 cm: 2. Bladder Tier nodules are described as follows: 1. Location: Right mid. Size: 0.91 x 0.38 x 0.72 cm, volume 0.13 mL. Previously: 0.99 x 0.41 x 0.72 cm, volume 0.15 mL. Nodule characteristics: Composition: Spongiform (0). Echogenicity: Anechoic (0). Shape: Not taller than wide (0). Margins: Smooth (0). Echogenic Foci: None (0). ACR TI-RADS total points: 0 ACR TI-RADS category: 1 Significant change in size (>/= 20% in 2 dimensions and minimal increase of 2 mm or 50% or greater increase in volume): None Change in features: None Change in ACR TI-RADS risk category: Not applicable 2. Location: Right inferior. Size: 1.1 x 0.55 x 0.68 cm, volume 0.22 mL. Previously: 1.1 x 0.59 x 0.74 cm, volume 0.25 mL. Nodule characteristics: Composition: Spongiform (0). Echogenicity: Anechoic (0). Shape: Not taller than wide (0). Margins: Smooth (0). Echogenic Foci: None (0). ACR TI-RADS total points: 0 ACR TI-RADS category: 1 Significant change in size (>/= 20% in 2 dimensions and minimal increase of 2 mm or 50% or greater increase in volume): None Change in features: None Change in ACR TI-RADS risk category: Not applicable 3. Location: Left superior. Size: 0.80 x 0.47 x 0.70 cm, volume 0.14 mL. Previously: 0.65 x 0.38 x 0.59 cm, volume 0.08 mL. Nodule characteristics: Composition: Mixed cystic and solid (1). Echogenicity: Cannot be determined (1). Shape: Not taller than wide (0). Margins: Smooth (0). Echogenic Foci: None (0). ACR TI-RADS total points: 2 ACR TI-RADS category: 2 Significant change in size (>/= 20% in 2 dimensions and minimal increase of 2 mm or 50% or greater increase in volume): None Change in features: None Change in ACR TI-RADS risk category: Not applicable 4. Location: Left inferior. Size: 1.3 x 0.59 x 0.44 cm, volume 0.18 mL. Previously: 0.89 x 0.55 x 0.82 cm, volume 0.21 mL. Nodule characteristics: Composition: Mixed cystic and solid (1). Echogenicity: Cannot be determined (1). Shape: Not taller than wide (0). Margins: Smooth (0). Echogenic Foci: None (0). ACR TI-RADS total points: 2 ACR TI-RADS category: 2 Significant change in size (>/= 20% in 2 dimensions and minimal increase of 2 mm or 50% or greater increase in volume): None Change in features: None Change in ACR TI-RADS risk category: Not applicable 5. Location: Left superior. Size: 0.66 x 0.43 x 0.56 cm, volume 0.08 mL. Previously: 0.87 x 0.55 x 0.75 cm, volume 0.19 mL. Nodule characteristics: Composition: Solid (2). Echogenicity: Hypoechoic (2). Shape: Not taller than wide (0). Margins: Smooth (0). Echogenic Foci: None (0). ACR TI-RADS total points: 4 ACR TI-RADS category: 4 Significant change in size (>/= 20% in 2 dimensions and minimal increase of 2 mm or 50% or greater increase in volume): None Change in features: None Change in ACR TI-RADS risk category: Not applicable NODES: No lymphadenopathy is seen in the tissue surrounding the thyroid gland. US/US thyroid IMPRESSION: Heterogeneous non-enlarged thyroid gland with multiple stable thyroid nodules, none of these are suspicious by TI-RADS recommendation. ACR TI-RADS RECOMMENDATION REFERENCE: Ultrasound-guided fine-needle aspiration, followup ultrasound, no further follow up. * TR1 (0 point) and TR 2 (2 points): No FNA or follow up * TR3 (3 points): FNA if more than or equal to 2.5 cm in maximum dimension, followup ultrasound in 1, 3 and 5 years if 1.5 to 2.4 cm in maximum dimension. * TR4 (4-6 points): FNA if more than or equal to 1.5 cm in maximum dimension, followup ultrasound in 1, 2, 3 and 5 years if 1 to 1.4 cm in maximum dimension. * TR5 (more than or equal to 7 points): FNA if more than or equal to 1 cm in maximum dimension, followup ultrasound every year for 5 years if 0.5 to 0.9 cm in maximum dimension. * TR3, TR4 or TR5 nodules that are below the size threshold for follow up receive no follow up.
== END 2021-09-28 13:10 | disposition home or self-care (01) ==
LOC: HO.US 13:09
PROVIDERS: PCP Internal Medicine; Visit Provider Internal Medicine
DX: E04.2 Nontoxic multinodular goiter (principal)
CPT/HCPCS: 76536

== ENCOUNTER 2021-10-09 11:54 | Outpatient (REF) | payer MEDICARE, SELFPAY ==
[2021-10-09 16:39] LABS: Free T4 (Free Thyroxine) 0.74 ng/dL (0.71-1.85); Vitamin D 25-OH Total 33.2 ng/mL (>30)
[2021-10-10 15:52] LABS: PTHI 51 pg/mL (16-77)
== END 2021-10-09 11:55 | disposition home or self-care (01) ==
LOC: HO.LAB 11:54
PROVIDERS: PCP Internal Medicine; Visit Provider Internal Medicine
DX: M81.0 Age-related osteoporosis without current pathological fracture (principal); E04.2 Nontoxic multinodular goiter; E55.9 Vitamin D deficiency, unspecified
CPT/HCPCS: 36415; 82306; 83970; 84439

== ENCOUNTER → 2021-10-12 12:12 | Outpatient (BNVA) | payer MEDICARE, SELFPAY | PROVIDERS: PCP Internal Medicine; Visit Provider Internal Medicine | DX: M81.0 Age-related osteoporosis without current pathological fracture (principal); E55.9 Vitamin D deficiency, unspecified; E04.2 Nontoxic multinodular goiter | CPT/HCPCS: Q3014 ==

== ENCOUNTER 2021-10-24 08:15 | Outpatient (REF) | payer MEDICARE, SELFPAY ==
[2021-10-24 08:36] LABS: MANUAL DIFF FLAG NO
[2021-10-24 08:58] LABS: Appearance Urine CLEAR; Color Urine STRAW; Glucose Urine UA NEG (NEG); Leukocyte Esterase Urine NEG (NEG); Nitrite Urine NEG (NEG); Urine Blood NEG (NEG); Urine Ketones NEG (NEG); Urine Protein NEG (NEG-TRACE)
[2021-10-24 09:03] LABS: Basophils Percent Auto 0.2 % (0-2); Eosinophils Absolute Auto 0.1 X10*3/uL (0.0-0.4); Eosinophils Percent Auto 1.4 % (0-4); Hematocrit 40.1 % (37.0-47.0); Hemoglobin 13.3 g/dl (12.0-16.0); Imm Gran Abs Auto 0.01 X10*3/uL (0.00-0.03); Imm Gran Pct Auto 0.2 % (0.0-0.4); Lymphocytes Absolute Auto 1.6 X10*3/uL (1.2-4.9); Mean Corpuscular HGB Conc 33.2 g/dl (31.0-35.0); Mean Corpuscular Hemoglobin 31.3 pg (27.0-33.0); Mean Corpuscular Volume 94.4 fL (80.0-98.0); Mean Platelet Volume 9.3 fL (9.4-12.3); Monocytes Absolute Auto 0.4 X10*3/uL (0.1-1.2); Monocytes Percent Auto 9.3 % (2-11); Neutrophils Absolute Auto 2.2 x10*3/uL (2.0-8.3); Neutrophils Percent Auto 50.9 % (45-73); Platelet Count 320 X10*3/uL (160-400); Red Blood Count 4.25 X10*6/uL (4.20-5.50); Red Cell Distribution Width 12.4 % (11.0-16.0); White Blood Count 4.3 X10*3/uL (4.8-10.8)
[2021-10-24 09:57] LABS: Alanine Aminotransferase 23 U/L (0-31); Albumin Level 4.3 g/dL (3.5-5.0); Alkaline Phosphatase 71 U/L (39-117); Anion Gap 11 (12-20); Aspartate Amino Transferase 23 U/L (5-31); Bilirubin Total 0.6 mg/dL (0.0-1.0); Blood Urea Nitrogen 11 mg/dL (9-16); Calcium 9.6 mg/dL (8.4-10.2); Carbon Dioxide 27 mmol/L (22-29); Chloride 107 mmol/L (96-108); Cholesterol 193 mg/dL; Estimated Glomerular Filt Rate > 60; Glucose Fasting 86 mg/dL (60-99); HDL Cholesterol 62 mg/dL; LDL Cholesterol Calculated 107 mg/dl; Potassium 4.9 mmol/L (3.3-5.1); Sodium 140 mmol/L (135-145); Total Protein 6.3 g/dL (6.5-8.0); Triglycerides 121 mg/dL
[2021-10-24 10:20] LABS: Vitamin D 25-OH Total 34.1 ng/mL (>30)
== END 2021-10-24 08:16 | disposition home or self-care (01) ==
LOC: HO.LAB 08:15
PROVIDERS: PCP Internal Medicine; Visit Provider Internal Medicine
DX: E55.9 Vitamin D deficiency, unspecified (principal); E78.00 Pure hypercholesterolemia, unspecified; I10 Essential (primary) hypertension
CPT/HCPCS: 36415; 80053; 80061; 81003; 82306; 85025

== ENCOUNTER 2021-12-13 07:50 | Outpatient (REF) | payer MEDICARE, SELFPAY ==
--- NOTE | 2021-12-13 08:25 | P.BOP_ITS ---
Brief Operative Note Date of Service: 12/13/21 Pre-op diagnosis: Multinodular Thyroid Procedure: US the thyroid was performed today to reevaluate thyroid nodules and compare to her prior thyroid US dated 09/28/2021. What was read on 09/28/2021 as a LLP 1.3 cm nodule was in fact a LMP 1.1 cm thyroid nodule that had previously been biopsied with benign cytology. Her remaining nodules were unchanged from prior and no repeat FNA biopsy was required. Surgeon: Chayo Dimas, DO Was an Office Runner used for this Procedure?: No Estimated blood loss (mL): 0
[2021-12-13] MEDS: Lidocaine HCl 1 % MPF 5 ML VIAL 2 ML SUBCUT (09:53)
== END 2021-12-13 07:51 | disposition home or self-care (01) ==
LOC: HO.US 07:50
PROVIDERS: Visit Provider Internal Medicine
DX: E04.2 Nontoxic multinodular goiter (principal)
CPT/HCPCS: 76536

== ENCOUNTER 2022-03-26 09:11 | Outpatient (REF) | payer MEDICARE, SELFPAY ==
[2022-03-26 11:02] LABS: Alanine Aminotransferase 27 U/L (0-31); Albumin Level 4.2 g/dL (3.5-5.0); Alkaline Phosphatase 93 U/L (39-117); Anion Gap 10 (12-20); Aspartate Amino Transferase 28 U/L (5-31); Bilirubin Total 0.3 mg/dL (0.0-1.0); Blood Urea Nitrogen 14 mg/dL (9-16); Calcium 9.3 mg/dL (8.4-10.2); Carbon Dioxide 30 mmol/L (22-29); Chloride 106 mmol/L (96-108); Cholesterol 180 mg/dL; Estimated Glomerular Filt Rate > 60; Glucose Fasting 95 mg/dL (60-99); HDL Cholesterol 61 mg/dL; LDL Cholesterol Calculated 105 mg/dl; Phosphorus 3.2 mg/dL (2.7-4.5); Potassium 4.8 mmol/L (3.3-5.1); Sodium 141 mmol/L (135-145); Thyroid Stimulating Hormone 1.32 uIU/mL (0.32-4.0); Triglycerides 71 mg/dL
== END 2022-03-26 09:12 | disposition home or self-care (01) ==
LOC: HO.LAB 09:11
PROVIDERS: PCP Internal Medicine; Visit Provider Internal Medicine
DX: E78.00 Pure hypercholesterolemia, unspecified (principal); M81.0 Age-related osteoporosis without current pathological fracture; E04.2 Nontoxic multinodular goiter
CPT/HCPCS: 36415; 80053; 80061; 84100; 84443

== ENCOUNTER 2022-06-28 10:33 | Emergency (ER) | payer MEDICARE, SELFPAY ==
--- NOTE | 2022-06-28 10:41 | ECG_ITS ---
Test Reason : cp Blood Pressure : / mmHG Vent. Rate : 070 BPM Atrial Rate : 070 BPM P-R Int : 154 ms QRS Dur : 074 ms QT Int : 376 ms P-R-T Axes : 049 050 057 degrees QTc Int : 406 ms Normal sinus rhythm Normal ECG When compared with ECG of 07-MAR-2020 17:15, No significant change was found Referred By: Generic ED Physician Electronically Signed By:Tavon Lay
[2022-06-28 10:50] VITALS: BP 156/75; PULSE 81; RESP 18; TEMP 36.6; O2SAT 98; BMI 25.1
[2022-06-28 11:06] VITALS: BP 130/70; PULSE 68; PULSE 71; RESP 16; TEMP 36.9; O2SAT 97
--- NOTE | 2022-06-28 11:08 | ED.CHESTPAIN ---
HPI - Chest Pain General Chief Complaint: Chest Pain Stated Complaint: Chest pain/UTI? Time Seen by Provider: 06/28/22 11:08 Source: patient Mode of arrival: ambulatory Limitations: no limitations History of Present Illness HPI narrative: 71 y.o female with a PMHx of HTN, HLD, anxiety, multinodular thyroid, presents to the ED from an urgent care center c/o lower abdominal pressure x5 days and intermittent 3/10 chest pain x2 days. Patient states she went to urgent care for concerns of a UTI secondary to her abdominal discomfort, but was immediately sent to the ED by staff after mentioning her chest pain. She reports that her chest pain is not associated with any particular movement, exertion, or eating. Denies fevers, chills, SOB, hematuria, nausea/vomiting/diarrhea, calf pain, or recent travel. Onset (ago): day(s) Treatment prior to arrival: none Related Data Home Medications Medication Instructions Recorded Confirmed calcium carbonate 600 mg calcium 600 mg PO DAILY 03/14/20 05/25/22 (1,500 mg) tablet (Calcium) Previous Rx's Medication Instructions Recorded lisinopril 5 mg tablet 5 mg PO DAILY 90 days #90 tabs 03/13/22 atorvastatin 40 mg tablet 40 mg PO DAILY #90 tabs 05/14/22 venlafaxine 37.5 mg 37.5 mg PO DAILY #90 caps 05/14/22 capsule,extended release 24 hr cephalexin 500 mg capsule 500 mg PO Q6H 7 days #28 caps 06/28/22 Allergies Allergy/AdvReac Type Severity Reaction Status Date / Time latex Allergy Unknown unknown Verified 06/28/22 10:53 Review of Systems Constitutional: Constitutional: Reports no additional constitutional complaints, Denies chills, Denies fever(s) and Denies night sweats Eyes: Eyes: Reports no additional eye complaints, Denies blurry vision, Denies change in vision, Denies diplopia, Denies eye discharge, Denies loss of vision and Denies eye pain ENT: Denies dizziness Cardiovascular: Cardiovascular: Reports chest pain (intermittent), Denies lightheadedness, Denies Loss of Consciousness, Denies radiating jaw, neck or arm pain, Denies palpitations, Denies dyspnea and Denies dyspnea on exertion Respiratory: Respiratory: Reports no additional respiratory complaints, Denies dyspnea and Denies dyspnea on exertion Gastrointestinal: Gastrointestinal: Reports no additional gastrointestinal complaints, Reports abdominal pain (RUQ, discomfort to lower abdomen ), Denies melena, Denies hematochezia, Denies change in bowel habits and Denies change in stool character Genitourinary: Genitourinary: Denies hematuria, Denies urinary frequency, Denies dysuria, Denies urinary incontinence, Denies urinary hesitancy and Denies urinary urgency Musculoskeletal: Musculoskeletal: Reports no additional musculoskeletal complaints, Denies numbness and Denies tingling Neurologic: Denies dizziness, Denies loss of vision, Denies numbness and Denies tingling Psychiatric: Psychiatric: Reports no additional psychiatric complaints Endocrine: Endocrine: Reports no additional endocrine complaints and Denies palpitations Hematologic/Lymphatic: Hematologic/Lymphatic: Reports no additional hematologic/lymphatic complaints Allergic/Immunologic: Allergic/Immunologic: Reports no additional allergic/immunologic complaints PMFSH Past Medical History Attestation statement: The following information was validated with the patient. Source: old records reviewed and nursing notes reviewed Medical History Anxiety Benign essential hypertension Cataract Impaired fasting glucose Multinodular thyroid Osteoporosis Palpitations Pure hypercholesterolemia Vitamin D deficiency Surgical History History of lobectomy of thyroid History of mandibular surgery Family History Family History Father ALS (amyotrophic lateral sclerosis) Mother Diabetes Social History Social History Housing: House Alcohol intake: current Alcohol intake frequency: holidays/special occasions only Alcohol type: wine Patient Tobacco Use Status: Former Tobacco user Tobacco use type: Cigarette e-Cigarette/Vaping Use: Never Used Second Hand Smoke Exposure: No service: No Current occupational status: retired Cognitive needs: No Hearing needs: No Vision needs: Yes (reading glasses) Physical Exam Vital Signs: Vital Signs: Last Vital Signs Temp 98.4 F 06/28/22 11:06 Pulse 71 06/28/22 11:06 Resp 16 06/28/22 11:06 BP 130/70 06/28/22 11:06 Pulse Ox 97 06/28/22 11:06 O2 Del Method 06/28/22 11:06 BMI result Body Mass Index 25.1 Const: General: cooperative, no acute distress, alert and awake Nutritional Appearance: well nourished Orientation/consciousness: patient oriented x3 Limitations: no limitations HEENT: Head: Yes normal to inspection and Yes atraumatic Ears: hearing grossly normal bilaterally and external ears normal General nose exam: Normal external nose present, no nasal discharge noted and no epistaxis Face and sinus: Yes normal facial exam, No abrasion and No laceration Mouth: Normal oral and palatal mucosa present, no drooling and no muffled voice Eyes: General: appearance normal, both eyes and all related structures Periorbital: periorbital findings normal Eyelids: Yes eyelids normal Conjunctivae: conjunctivae normal Pupils: Equal, round and reactive pupils present EOM: EOMs intact bilaterally Neck: Neck: Yes normal visual inspection, Yes full ROM and Yes no lymphadenopathy Chest: Chest palpation & inspection: normal inspection of the chest Resp: Effort & Inspection: normal respiratory effort and able to speak in complete sentences Auscultation: clear to auscultation bilaterally Cardio: Rate: regular rate Rhythm: regular rhythm GI: Inspection: Yes normal to inspection Palpation (GI): Soft to palpation, not firm, Tenderness to palpation present (GI) (Mild tenderness ) in the RUQ, no guarding and not rigid : General: Yes bladder normal to palpation, No CVA tenderness and Yes no CVA tenderness Bimanual exam- vagina & uterus: bladder normal to palpation Back/Spine/Pelvis: Back: no CVA tenderness and No CVA tenderness Neuro: General: patient oriented x3 and moves all extremities Cranial nerves: Yes Equal, round and reactive pupils present Cognition (Neuro): normal cognition Motor exam (neuro): 5/5 motor strength present throughout Sensory Exam: Normal double simultaneous stimulation for sensation Coordination: [id number] test normal Extrem: General: Yes normal to inspection, Yes full ROM and Yes capillary refill normal Psych: Appearance: grossly normal Mental Status: mental status grossly normal Affect: normal affect Attitude: cooperative Thought process: Normal thought process present Thought content: Normal thought content present Insight: Good insight present (Psych) Medical Decision Making Medical Decision Making MDM Narrative: 71 y.o female with a PMHx of HTN, HLD, anxiety, multinodular thyroid, presents to the ED from an urgent care center c/o lower abdominal pressure x5 days and intermittent 3/10 chest pain x2 days. On exam pt is well-appearing, in NAD, VSS. Lungs CTA bilaterally. RUQ of abdomen mildly TTP without rigidity or guarding. No CVA tenderness. Patient's blood work was unremarkable. Patient's urine showed a possible UTI - given the patient's symptoms, will treat with abx. Patient informed of my physical exam findings and results. I stressed the importance of the patient following up with her primary care provider and taking her medication as prescribed. I stressed the importance of the patient returning to the ER if her symptoms were to worsen or if she were to develop new symptoms. Patient verbalized agreement and understanding with this treatment plan and discharge. Differential Diagnosis Differential Diagnoses: The differential diagnosis associated with the presentation includes UTI Lab Data MDM Lab Attestation statement: I reviewed the patient's lab results. 06/28/22 11:16 06/28/22 11:16 Labs: Lab Results 06/28/22 06/28/22 06/28/22 Range/Units 11:16 11:16 11:16 WBC 5.3 (4.8-10.8) X10*3/uL RBC 4.14 L (4.20-5.50) X10*6/uL Hgb 13.1 (12.0-16.0) g/dl Hct 38.8 (37.0-47.0) % MCV 93.7 (80.0-98.0) fL MCH 31.6 (27.0-33.0) pg MCHC 33.8 (31.0-35.0) g/dl RDW 12.5 (11.0-16.0) % Plt Count 286 (160-400) X10*3/uL MPV 9.4 (9.4-12.3) fL Immature Gran % (Auto) 0.4 (0.0-0.4) % Neut % (Auto) 55.7 (45-73) % Lymph % (Auto) 34.3 (20-40) % Glascock % (Auto) 8.8 (2-11) % Eos % (Auto) 0.6 (0-4) % Baso % (Auto) 0.2 (0-2) % Lymph # (Auto) 1.8 (1.2-4.9) X10*3/uL [place]ock # (Auto) 0.5 (0.1-1.2) X10*3/uL Eos # (Auto) 0.0 (0.0-0.4) X10*3/uL Baso # (Auto) 0.0 (0.0-0.2) X10*3/uL Abs Immat Gran (auto) 0.02 (0.00-0.03) X10*3/uL Absolute Neuts (auto) 2.9 (2.0-8.3) x10*3/uL Absolute Nucleated RBC 0.000 (0.0-0.012) X10*3/uL Nucleated RBC % (auto) 0.0 (0.0-0.2) /100WBC Sodium 142 (135-145) mmol/L Potassium 4.2 (3.3-5.1) mmol/L Chloride 107 (96-108) mmol/L Carbon Dioxide 28 (22-29) mmol/L Anion Gap 11 L (12-20) BUN 18 H (9-16) mg/dL Creatinine 0.75 (0.5-1.4) mg/dL Estim Creat Clear Calc 61.2 Estimated GFR > 60 Random Glucose 91 (60-115) mg/dL Calcium 9.4 (8.4-10.2) mg/dL Total Bilirubin 0.8 (0.0-1.0) mg/dL AST 29 (5-31) U/L ALT 35 H (0-31) U/L Alkaline Phosphatase 67 (39-117) U/L Troponin I High Sens < 3.5 (<3.5-17.0) ng/L Total Protein 6.3 L (6.5-8.0) g/dL Albumin 4.2 (3.5-5.0) g/dL Urine Color Urine Appearance Urine pH (5.0-9.0) Ur Specific Scroggins (1.005-1.025) Urine Protein (Neg-Trace) mg/dL Urine Glucose (UA) (Negative) mg/dL Urine Ketones (Negative) mg/dL Urine Blood (Negative) Urine Nitrite (Negative) Ur Leukocyte Esterase (Negative) Urine RBC (0-2) /HPF Urine WBC (0-5) /HPF Ur Squamous Epith Cells (0-2) /HPF Urine Bacteria (None Seen) Hyaline Casts (0-2) /LPF 03/16/23 Range/Units 12:15 WBC (4.8-10.8) X10*3/uL RBC (4.20-5.50) X10*6/uL Hgb (12.0-16.0) g/dl Hct (37.0-47.0) % MCV (80.0-98.0) fL MCH (27.0-33.0) pg MCHC (31.0-35.0) g/dl RDW (11.0-16.0) % Plt Count (160-400) X10*3/uL MPV (9.4-12.3) fL Immature Gran % (Auto) (0.0-0.4) % Neut % (Auto) (45-73) % Lymph % (Auto) (20-40) % [place]ascock % (Auto) (2-11) % Eos % (Auto) (0-4) % Baso % (Auto) (0-2) % Lymph # (Auto) (1.2-4.9) X10*3/uL [place]ock # (Auto) (0.1-1.2) X10*3/uL Eos # (Auto) (0.0-0.4) X10*3/uL Baso # (Auto) (0.0-0.2) X10*3/uL Abs Immat Gran (auto) (0.00-0.03) X10*3/uL Absolute Neuts (auto) (2.0-8.3) x10*3/uL Absolute Nucleated RBC (0.0-0.012) X10*3/uL Nucleated RBC % (auto) (0.0-0.2) /100WBC Sodium (135-145) mmol/L Potassium (3.3-5.1) mmol/L Chloride (96-108) mmol/L Carbon Dioxide (22-29) mmol/L Anion Gap (12-20) BUN (9-16) mg/dL Creatinine (0.5-1.4) mg/dL Estim Creat Clear Calc Estimated GFR Random Glucose (60-115) mg/dL Calcium (8.4-10.2) mg/dL Total Bilirubin (0.0-1.0) mg/dL AST (5-31) U/L ALT (0-31) U/L Alkaline Phosphatase (39-117) U/L Troponin I High Sens (<3.5-17.0) ng/L Total Protein (6.5-8.0) g/dL Albumin (3.5-5.0) g/dL Urine Color Yellow Urine Appearance Clear Urine pH 7.0 (5.0-9.0) Ur Specific [place] 1.020 (1.005-1.025) Urine Protein Negative (Neg-Trace) mg/dL Urine Glucose (UA) Negative (Negative) mg/dL Urine Ketones Negative (Negative) mg/dL Urine Blood Negative (Negative) Urine Nitrite Negative (Negative) Ur Leukocyte Esterase Moderate (2+) H (Negative) Urine RBC 0-2 (0-2) /HPF Urine WBC 0-5 (0-5) /HPF Ur Squamous Epith Cells 6-10 (0-2) /HPF Urine Bacteria Trace (None Seen) Hyaline Casts 0-2 (0-2) /LPF Independent Interpretation I performed an independent interpretation of an: EKG Interpretation: Vent. Rate: 070 BPM ? ? Atrial Rate: 070 BPM P-R Int: 154 ms? QRS Dur: 074 ms QT Int: 376 ms ? ? ? P-R-T Axes: 049 050 057 degrees QTc Int: 406 ms ? Normal sinus rhythm Normal ECG When compared with ECG of 07-MAR-2020 17:15, No significant change was found DD/ 1046 Discharge Plan Discharge Clinical Impression: Acute UTI Patient Disposition: Home, Self-Care Instructions: Urinary Tract Infection in Older Adults (ED) Additional Instructions: Follow up with your primary care provider. Return to the emergency department immediately if your symptoms worsen or if you develop any dizziness, shortness of breath, difficulty breathing, chest pain, blurry vision, loss of vision, nausea, vomiting, abdominal pain, fever, chills, back pain, or any other complaints. Prescriptions: New cephalexin 500 mg capsule 500 mg PO Q6H 7 Days Qty: 28 0RF No Action lisinopril 5 mg tablet 5 mg PO DAILY 90 Days Qty: 90 3RF atorvastatin 40 mg tablet 40 mg PO DAILY Qty: 90 1RF venlafaxine 37.5 mg capsule,extended release 24hr 37.5 mg PO DAILY Qty: 90 1RF calcium carbonate [Calcium 600] 600 mg calcium (1,500 mg) tablet 600 mg PO DAILY Referrals: Jose Alfredo Pandey MD [Primary Care Provider] - Interventions: ED Discharge Assessment Last Done: 06/28/22 13:06 Discharge Date/Time: 06/28/22 13:06 Print Language: Japanese
[2022-06-28 11:20] LABS: MANUAL DIFF FLAG NO
[2022-06-28 11:25] LABS: Basophils Percent Auto 0.2 % (0-2); Eosinophils Percent Auto 0.6 % (0-4); Hematocrit 38.8 % (37.0-47.0); Hemoglobin 13.1 g/dl (12.0-16.0); Imm Gran Abs Auto 0.02 X10*3/uL (0.00-0.03); Imm Gran Pct Auto 0.4 % (0.0-0.4); Lymphocytes Absolute Auto 1.8 X10*3/uL (1.2-4.9); Lymphocytes Percent Auto 34.3 % (20-40); Mean Corpuscular HGB Conc 33.8 g/dl (31.0-35.0); Mean Corpuscular Hemoglobin 31.6 pg (27.0-33.0); Mean Corpuscular Volume 93.7 fL (80.0-98.0); Mean Platelet Volume 9.4 fL (9.4-12.3); Monocytes Absolute Auto 0.5 X10*3/uL (0.1-1.2); Monocytes Percent Auto 8.8 % (2-11); Neutrophils Absolute Auto 2.9 x10*3/uL (2.0-8.3); Neutrophils Percent Auto 55.7 % (45-73); Platelet Count 286 X10*3/uL (160-400); Red Blood Count 4.14 X10*6/uL (4.20-5.50); Red Cell Distribution Width 12.5 % (11.0-16.0); White Blood Count 5.3 X10*3/uL (4.8-10.8)
[2022-06-28 11:37] LABS: Alanine Aminotransferase 35 U/L (0-31); Albumin Level 4.2 g/dL (3.5-5.0); Alkaline Phosphatase 67 U/L (39-117); Anion Gap 11 (12-20); Aspartate Amino Transferase 29 U/L (5-31); Bilirubin Total 0.8 mg/dL (0.0-1.0); Blood Urea Nitrogen 18 mg/dL (9-16); Calcium 9.4 mg/dL (8.4-10.2); Carbon Dioxide 28 mmol/L (22-29); Chloride 107 mmol/L (96-108); Creatinine Clr Calc Pharmacy 61.2; Estimated Glomerular Filt Rate > 60; Glucose Random 91 mg/dL (60-115); Potassium 4.2 mmol/L (3.3-5.1); Sodium 142 mmol/L (135-145); Total Protein 6.3 g/dL (6.5-8.0)
[2022-06-28 12:23] LABS: Troponin-I High Sensitivity < 3.5 ng/L (<3.5-17.0)
[2022-06-28 12:23] LABS: Appearance Urine Clear; Color Urine Yellow; Glucose Urine UA Negative (Negative); Leukocyte Esterase Urine Moderate (2+) (Negative); Nitrite Urine Negative (Negative); UMIC TRIGGER UACC YES; Urine Blood Negative (Negative); Urine Ketones Negative (Negative); Urine Protein Negative (Neg-Trace)
[2022-06-28 12:36] LABS: Bacteria Urine Trace (None Seen); Hyaline Casts Urine 0-2 /LPF (0-2); RBC Urine 0-2 /HPF (0-2); WBC Urine 0-5 /HPF (0-5)
== END 2022-06-28 13:06 | disposition home or self-care (01) ==
PROVIDERS: Physician Assistant Medical; Emergency Provider Emergency Medicine; PCP Internal Medicine
DX: N39.0 Urinary tract infection, site not specified (principal); R07.9 Chest pain, unspecified; I10 Essential (primary) hypertension; E78.5 Hyperlipidemia, unspecified; Z87.891 Personal history of nicotine dependence; Z79.02 Long term (current) use of antithrombotics/antiplatelets; Z79.899 Other long term (current) drug therapy
CPT/HCPCS: 36415; 80053; 81001; 84484; 85025; 93005; 99283; 99284; 99285

== ENCOUNTER 2022-07-06 17:23 | Outpatient (REF) | payer MEDICARE, SELFPAY | END 2022-07-06 17:24 | disposition home or self-care (01) | LOC: HO.LNP 17:23 | PROVIDERS: Visit Provider Internal Medicine | DX: N39.0 Urinary tract infection, site not specified (principal); R30.0 Dysuria | CPT/HCPCS: 87086 ==

== ENCOUNTER 2022-10-05 08:38 | Outpatient (REF) | payer MEDICARE, SELFPAY ==
[2022-10-05 08:50] LABS: MANUAL DIFF FLAG NO
[2022-10-05 10:02] LABS: Hematocrit 40.3 % (37.0-47.0); Hemoglobin 13.4 g/dl (12.0-16.0); Imm Gran Abs Auto 0.01 X10*3/uL (0.00-0.03); Imm Gran Pct Auto 0.3 % (0.0-0.4); Lymphocytes Absolute Auto 1.5 X10*3/uL (1.2-4.9); Lymphocytes Percent Auto 39.7 % (20-40); Mean Corpuscular HGB Conc 33.3 g/dl (31.0-35.0); Mean Corpuscular Hemoglobin 30.9 pg (27.0-33.0); Mean Corpuscular Volume 92.9 fL (80.0-98.0); Mean Platelet Volume 9.4 fL (9.4-12.3); Monocytes Absolute Auto 0.4 X10*3/uL (0.1-1.2); Monocytes Percent Auto 9.9 % (2-11); Neutrophils Absolute Auto 1.9 x10*3/uL (2.0-8.3); Neutrophils Percent Auto 49.1 % (45-73); Platelet Count 328 X10*3/uL (160-400); Red Blood Count 4.34 X10*6/uL (4.20-5.50); Red Cell Distribution Width 12.1 % (11.0-16.0); White Blood Count 3.9 X10*3/uL (4.8-10.8)
[2022-10-05 10:10] LABS: Appearance Urine Clear; Color Urine Yellow; Glucose Urine UA Negative (Negative); Leukocyte Esterase Urine Small (1+) (Negative); Nitrite Urine Negative (Negative); Specific Gravity - Urine 1.015 (1.005-1.025); UMIC TRIGGER UACC YES; Urine Blood Negative (Negative); Urine Ketones Trace mg/dL (Negative); Urine Protein Negative (Neg-Trace)
[2022-10-05 10:20] LABS: Bacteria Urine None Seen (None Seen); Hyaline Casts Urine 0-2 /LPF (0-2); RBC Urine 0-2 /HPF (0-2); UACC Culture Trigger YES; WBC Urine 0-5 /HPF (0-5)
[2022-10-05 11:07] LABS: Alanine Aminotransferase 38 U/L (0-31); Albumin Level 4.2 g/dL (3.5-5.0); Alkaline Phosphatase 71 U/L (39-117); Anion Gap 11 (12-20); Aspartate Amino Transferase 36 U/L (5-31); Bilirubin Total 0.8 mg/dL (0.0-1.0); Blood Urea Nitrogen 10 mg/dL (9-16); Calcium 9.5 mg/dL (8.4-10.2); Carbon Dioxide 27 mmol/L (22-29); Chloride 106 mmol/L (96-108); Cholesterol 183 mg/dL; Estimated Glomerular Filt Rate > 60; Glucose Fasting 91 mg/dL (60-99); HDL Cholesterol 57 mg/dL; LDL Cholesterol Calculated 110 mg/dl; Potassium 4.4 mmol/L (3.3-5.1); Sodium 140 mmol/L (135-145); Total Protein 6.6 g/dL (6.5-8.0); Triglycerides 84 mg/dL
[2022-10-05 11:26] LABS: TSH reflex Free T4 1.15 uIU/mL (0.32-4.0); Vitamin D 25-OH Total 37.6 ng/mL (>30)
== END 2022-10-05 08:39 | disposition home or self-care (01) ==
LOC: HO.LAB 08:38
PROVIDERS: PCP Internal Medicine; Visit Provider Internal Medicine
DX: I10 Essential (primary) hypertension (principal); E55.9 Vitamin D deficiency, unspecified; E78.00 Pure hypercholesterolemia, unspecified; R82.90 Unspecified abnormal findings in urine
CPT/HCPCS: 36415; 80053; 80061; 81001; 82306; 84443; 85025; 87086

== ENCOUNTER 2023-01-25 07:53 | Outpatient (REF) | payer MEDICARE, SELFPAY ==
[2023-01-25 08:16] LABS: MANUAL DIFF FLAG NO
[2023-01-25 09:26] LABS: Basophils Percent Auto 0.2 % (0-2); Eosinophils Absolute Auto 0.1 X10*3/uL (0.0-0.4); Eosinophils Percent Auto 1.1 % (0-4); Hematocrit 40.8 % (37.0-47.0); Hemoglobin 13.3 g/dl (12.0-16.0); Imm Gran Abs Auto 0.06 X10*3/uL (0.00-0.03); Imm Gran Pct Auto 0.9 % (0.0-0.4); Lymphocytes Absolute Auto 1.9 X10*3/uL (1.2-4.9); Lymphocytes Percent Auto 28.9 % (20-40); Mean Corpuscular HGB Conc 32.6 g/dl (31.0-35.0); Mean Corpuscular Hemoglobin 31.1 pg (27.0-33.0); Mean Corpuscular Volume 95.6 fL (80.0-98.0); Mean Platelet Volume 9.9 fL (9.4-12.3); Monocytes Absolute Auto 0.8 X10*3/uL (0.1-1.2); Monocytes Percent Auto 12.2 % (2-11); Neutrophils Absolute Auto 3.7 x10*3/uL (2.0-8.3); Neutrophils Percent Auto 56.7 % (45-73); Platelet Count 335 X10*3/uL (160-400); Red Blood Count 4.27 X10*6/uL (4.20-5.50); Red Cell Distribution Width 12.5 % (11.0-16.0); White Blood Count 6.5 X10*3/uL (4.8-10.8)
[2023-01-25 10:39] LABS: Alanine Aminotransferase 22 U/L (0-31); Albumin Level 4.2 g/dL (3.5-5.0); Alkaline Phosphatase 76 U/L (39-117); Anion Gap 14 (12-20); Aspartate Amino Transferase 28 U/L (5-31); Bilirubin Total 0.8 mg/dL (0.0-1.0); Blood Urea Nitrogen 8 mg/dL (9-16); Calcium 9.7 mg/dL (8.4-10.2); Carbon Dioxide 24 mmol/L (22-29); Chloride 107 mmol/L (96-108); Cholesterol 169 mg/dL (<200); Estimated Glomerular Filt Rate > 60; Glucose Fasting 81 mg/dL (60-99); HDL Cholesterol 63 mg/dL (>40); LDL Cholesterol Calculated 94 mg/dL (<100); Sodium 141 mmol/L (135-145); Total Protein 6.7 g/dL (6.5-8.0); Triglycerides 62 mg/dL (<150)
[2023-01-25 10:47] LABS: TSH reflex Free T4 1.85 uIU/mL (0.32-4.0)
== END 2023-01-25 07:54 | disposition home or self-care (01) ==
LOC: HO.LAB 07:53
PROVIDERS: PCP Internal Medicine; Visit Provider Internal Medicine
DX: E55.9 Vitamin D deficiency, unspecified (principal); E04.2 Nontoxic multinodular goiter; I10 Essential (primary) hypertension; E78.00 Pure hypercholesterolemia, unspecified; R30.0 Dysuria
CPT/HCPCS: 36415; 80053; 80061; 82306; 84443; 85025

== ENCOUNTER 2023-01-29 08:51 | Outpatient (AMB) | payer MEDICARE, SELFPAY ==
[2023-01-29 08:53] VITALS: BP 122/84; PULSE 80; O2SAT 98; BMI 25.5
--- NOTE | 2023-01-29 08:54 | A.OFFVIS_ITS ---
Intake Vital Signs 01/29/23 08:53 Height 5 ft 3 in Weight 144 lb 0.4 oz BMI 25.5 BP 122/84 Blood Pressure Location Lt brachial Position Sitting Pulse 80 Pulse Source Pulse Oximeter Temp Source Skin Pulse Oximetry (%) 98 Oxygen Delivery Method Room Air Intake Visit Reasons: VINCENTV [id number], Discuss/Bill ACP Outdoor Emergency Care Technician Required: No Allergies latex Allergy (Unknown, Verified 01/29/23 09:12) unknown Medication List - Last Reconciled 01/29/23 by TIRSO Corbin atorvastatin 40 mg PO DAILY calcium carbonate (Calcium) 600 mg PO DAILY lisinopril 5 mg PO DAILY 90 days phentermine 37.5 mg PO DAILY 30 days venlafaxine ER 37.5 mg PO DAILY HPI SWV [id number], Discuss/Bill ACP HPI Details Patient is a 72-year-old female presents today for subsequent wellness visit. Patient of Dr. Pandey. Patient is up-to-date with her health preventative screenings and immunizations. Pap smear normal 05/[address] Alexandra. Patient did have a negative Cologuard 03/2021. Mammogram normal 04/2022 at [facility]. Bone density screen 09/2021 with osteopenia. [place] of care was reviewed with the patient and she was provided with a screening schedule. End of life planning was discussed with the patient and she was provided with healthcare proxy and MOLST forms. [facility] Medical History (Updated 01/29/23 @ 09:29 by TIRSO Corbin) Elevated LFTs Adult general medical exam Medicare annual wellness visit, initial Dysuria Urinary tract infection Cataract Impaired fasting glucose Pure hypercholesterolemia Benign essential hypertension Palpitations Vitamin D deficiency Multinodular thyroid Osteoporosis Anxiety Surgical History History of mandibular surgery History of lobectomy of thyroid Family History Father ALS (amyotrophic lateral sclerosis) Mother Diabetes Social History Housing: House Alcohol intake: current Alcohol intake frequency: holidays/special occasions only Alcohol type: wine Patient Tobacco Use Status: Former Tobacco user Tobacco use type: Cigarette e-Cigarette/Vaping Use: Never Used Second Hand Smoke Exposure: No service: No Current occupational status: retired Cognitive needs: No Hearing needs: No Vision needs: Yes (reading glasses) Questionnaire Medicare Wellness Checkup [age] What gender do you identify with?: female During the past 4 weeks, how much have you been bothered by emotional problems such as feeling anxious, depressed, irritable, sad or downhearted, and blue?: not at all During the past 4 weeks, has your physical & emotional health limited your social activities with family, friends, neighbors, or groups?: not at all During the past 4 weeks, how much bodily pain have you generally had?: no pain During the past 4 weeks, was someone available to help you if you needed & wanted help?: no, not at all During the past 4 weeks, what was the hardest physical activity you could do for at least 2 minutes?: heavy Can you get to places out of walking distance without help? (For eg., can you travel alone on buses, taxis or drive your car?): Yes Can you go shopping for groceries or clothes without someone's help?: Yes Can you prepare your own meals?: Yes Can you do your housework without help?: Yes Because of any health problems, do you need the help of another person with your personal care needs such as eating, bathing, dressing or getting around the house?: No Can you handle your own money without help?: Yes During the past 4 weeks, how would you rate your health in general?: excellent During the past 4 weeks how have things been going for you?: very well; could hardly better Are you having difficulties driving your car?: no Do you always fasten your seat belt when you are in a car?: yes, usually During past 4 weeks, have you been bothered by the following: never: Falling or dizzy when standing up, Sexual problems?, Trouble eating well?, Teeth or denture problems?, Problems using the telephone? and Tiredness or fatigue? Have you fallen 2 or more times in the past year?: No Are you afraid of falling?: No Are you a smoker?: no During the past 4 weeks, how many drinks of wine, beer, or other alcoholic beverages did you have?: 2-5 drinks per week Do you exercise for about 20 minutes 3 or more times a week?: yes, most of the time Have you been given information to help with the following?: no: Hazards in your house that might hurt you? How often do you have trouble taking medicines the way you have been told to take them?: I always take medicine as prescribed How confident are you that you can control & manage most of your health problem s?: very confident What is your race?: White Mini Mental State Exam (MMSE) Orientation What is the (year) (season) (date) (day) (month)?: year, season, date, day and month Score Score: 5 Activity of Daily Living Bathing - sponge bath, tub bath or shower: receives no assistance (gets in/out by self, if usual bathing means Dressing - getting clothes from closets & drawers, including inner/outer garments & fasteners.: gets clothes & gets completely dressed without help Toileting - going to the 'toilet room' for urine/bowel elimination & cleaning self/arranging clothes: goes to toilet room, cleans self, arranges clothes without help Transfer: moves in & out of bed and chair without help (may use support object) Continence: controls urination/bowel movements completely by self Feeding: feeds self without help Total Score: 0 Information obtained from: patient Using telephone: independent Traveling: independent Shopping: independent Preparing meals: independent Housework: independent Taking medicine: independent Managing money: independent PHQ-9 Over the last 2 weeks, how often have you been bothered by any of the following problems? 1. Little interest or pleasure in doing things: not at all 2. Feeling down, depressed, or hopeless: not at all 3. Trouble falling or staying asleep, or sleeping too much: not at all 4. Feeling tired or having little energy: not at all 5. Poor appetite or overeating: not at all 6. Feeling bad about yourself - or that you are a failure or have let yourself or your family down: not at all 7. Trouble concentrating on things, such as reading the newspaper or watching television: not at all 8. Moving or speaking so slowly that other people could have noticed. Or the opposite - being so fidgety or restless that you have been moving around a lot more than usual: not at all 9. Thoughts that you would be better off or of hurting yourself in some way: not at all Total score: 0 Depression Screening Interpretation: Negative Depression Screening Done: Yes 10942 - PHQ-9 Billing: Yes Source: Developed by Drs. Niels Pearce, Aspen Gardner, Tyree Ayala and colleagues, with an educational bon from [employer]. Physical Exam Vital Signs: Last Vital Signs Pulse 80 01/29/23 08:53 BP 122/84 01/29/23 08:53 Pulse Ox 98 01/29/23 08:53 Oxygen Delivery Method Room Air 01/29/23 08:53 BMI result Body Mass Index 25.5 Const General: cooperative and no acute distress Orientation/consciousness: patient oriented x3 HEENT Other: Whisper test: pass Neuro Other: Balance: Normal Get up and walk: able to Romberg: negative Tandem gait: able to General: patient oriented x3 Assessment & Plan Assessment & Plan (1) Anxiety: Code(s): F41.9 - Anxiety disorder, unspecified Plan: Continue venlafaxine daily (2) Pure hypercholesterolemia: Code(s): E78.00 - Pure hypercholesterolemia, unspecified Plan: Atorvastatin 40 mg daily Low-cholesterol diet (3) Impaired fasting glucose: Code(s): R73.01 - Impaired fasting glucose Plan: Recent fasting glucose 81 01/2023 (4) Benign essential hypertension: Code(s): I10 - Essential (primary) hypertension Plan: Lisinopril 5 mg daily Low-sodium diet (5) Multinodular thyroid: Code(s): E04.2 - Nontoxic multinodular goiter Plan: Continue to follow-up with endocrinology Dr. Lynn (6) Medicare annual wellness visit, subsequent: Code(s): Z00.00 - Encounter for general adult medical examination without abnormal findings (7) Osteopenia: Code(s): M85.80 - Other specified disorders of bone density and structure, unspecified si te Plan: Continue to follow-up with endocrinology Dr. Lynn Plan Recent blood work results reviewed with the patient, patient is due for blood work in 4 months Orders: Orders TSH reflex Free T4 4 Months E04.2 - Nontoxic multinodular goiter Lipid Panel 4 Months E78.00 - Pure hypercholesterolemia, unspecified Comprehensive [place]. Panel Fast 4 Months R73.01 - Impaired fasting glucose Complete Blood Count Auto Diff 4 Months I10 - Essential (primary) hypertension Quality Reporting (2019) Depression/Bipolar (159/160/161/177) PHQ-9: Total score: 0 Coding Level of Care Code Medicare Subsequent (G0439) Diagnoses Anxiety F41.9 Pure hypercholesterolemia E78.00 Impaired fasting glucose R73.01 Benign essential hypertension I10 Multinodular thyroid E04.2 Medicare annual wellness visit, subsequent Z00.00 Osteopenia M85.80 CPT Codes Advance Care Planning - Time spent: 1-15 minutes, not on file ([id number]) Advance Care Planning Date of discussion: 01/29/23 Who was present: pt and java scala developer Forms completed: None Time spent: 1-15 minutes, not on file Actual minutes spent: 3 Did not discuss due to Cultural/Spiritual beliefs: No
== END 2023-01-29 09:25 | disposition home or self-care (01) ==
PROVIDERS: Visit Provider Nurse Practitioner Family
DX: Z00.00 Encounter for general adult medical examination without abnormal findings (principal); F41.9 Anxiety disorder, unspecified; E78.00 Pure hypercholesterolemia, unspecified; R73.01 Impaired fasting glucose; I10 Essential (primary) hypertension; E04.2 Nontoxic multinodular goiter; M85.80 Other specified disorders of bone density and structure, unspecified site
CPT/HCPCS: 1124F; G0439

== ENCOUNTER 2023-04-09 10:46 | Outpatient (AMB) | payer MEDICARE, SELFPAY ==
[2023-04-09 10:49] VITALS: BP 138/76; PULSE 66; BMI 24.4
--- NOTE | 2023-04-09 10:49 | A.OFFVIS_ITS ---
Intake Vital Signs 04/09/23 10:49 Height 5 ft 3 in Weight 137 lb 9.095 oz BMI 24.4 BP 138/76 Blood Pressure Location Lt brachial Position Sitting Pulse 66 Pulse Source Pulse Oximeter Intake Visit Reasons: Osteoporosis-CONFIRMED Intake Note: Former Dr. Maria patient last seen on 10/12/2021, presents today to follow up on Osteoporosis and Multinodular Thyroid with Dr. Lynn. Industrial Rehabilitation Consultant Required: No Accompanied by: Self / Same As Patient Allergies latex Allergy (Unknown, Verified 04/09/23 10:55) unknown Medication List - Last Reconciled 04/09/23 by Niels Lynn MD atorvastatin 40 mg PO DAILY calcium carbonate (Calcium) 600 mg PO DAILY lisinopril 5 mg PO DAILY 90 days phentermine 37.5 mg PO DAILY 30 days venlafaxine ER 37.5 mg PO DAILY HPI HPI Comments History of Present Illness Details 72 YO Female with PMHx Osteoporosis, HLD and Nontoxic MNG who is seen in F/U for Osteoporosis and NTMNG. The patient last Dr. Maria on 10/12/2021 1. Osteoporosis She was first diagnosed with Osteoporosis by her Interactive Multimedia Designer after she had a routine screening DXA in her mid 50's. This revealed Osteopenia, and she was started on Fosamax, which she continued for 5 years. She was then switched to Prolia. She only received 2 injections of this, in 2009. Due to issues with insurance coverage she was then switched to Boniva, and continued this from 2009 until February of 2018. 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 She did have her initial surgery in 2002 and had poor healing initially. She did have an area of necrotic bone removed. She has since had regrowth of the tumors and has had additional surgeries and biopsies. Was referred to oral surgeon at [facility] [place] who noted that she was on Bisphosphonate. He advised her to stop the Bisphosphonate (which she did as of February 2018) and see Endocrinology. She has since had F/U with them in July of 2018 and has remained on a drug holiday off all treatment. No fragility fractures in the past. Menarche at age 12, menses always regular. , did not breast feed. Menopause at age 49. No HRT. Diet has minimal dairy, less than 1 serving per day. Does not take Calcium 600 mg PO daily. Off Vitamin D now. Is active on her feet throughout the day watching Grandson, was previously walking daily. UTD on dental care. Has teeth cleaned two times per year. Has no planned upcoming dental work. Kidney stone on CT in 2005, but no family history of kidney stones and patient unaware of this history. Has never taken any anticoagulants, antiepileptic medication. Denies use of PPI. Denies any height loss. DXA: 09/26/2021 FINDINGS: AP SPINE L1-L4: Current: BMD 1.226 g/cm2, Z-score 2.0, T-score 0.4, normal, 0.2% decrease from previous, 4.5% increase from baseline (<5% change is not significant). Prior: BMD 1.229 g/cm2. Baseline: BMD 1.173 g/cm2. LEFT FEMUR, NECK: Current: BMD 0.706 g/cm2, Z-score -0.6, T-score -2.4, osteopenia. Prior: BMD 0.717 g/cm2. Baseline: BMD 0.698 g/cm2. LEFT FEMUR, TOTAL: Current: BMD 0.877 g/cm2, Z-score 0.5, T-score -1.0, normal, 3.1% increase from previous, 0.8% increase from baseline (<5% change is not significant). Prior: BMD 0.851 g/cm2. Baseline: BMD 0.870 g/cm2. 2. NTMNG She was diagnosed with multiple thyroid nodules approximately 40 years ago. Was formerly a patient of Dr. Lynn and was told she had multiple small anechoic nodules. Had last thyroid US in 2003 with FNA at that time of a dominant L sided nodule which was nondiagnostic. Patient had a thyroid nodule surgically excised in the , which she reports was benign. She underwent FNA biopsy 01/29/19 by ma of a L mid pole 1.1 cm thyroid nodule, and a R mid pole 1.2 cm thyroid nodule, both with Benign (Lindside Category II) cytology. She recently had a repeat thyroid US for surveillance. Remains euthyroid not on any thyroid medication. Was on Synthroid for short period postoperatively but has been off this since the . Currently with no dysphagia, vocal hoarseness. Denies tremors, palpitations, hair loss, constipation. Denies any radiation to the head or the neck. Denies any family history of thyroid cancer. Thyroid US: 09/28/2021 Right Thyroid Lobe: 4.3 x 1.3 x 1.4 cm, volume 4.1 mL. Previously 4.2 x 1.2 x 1.6 cm, volume 4.2 mL. Parenchyma: The gland echotexture is heterogeneous. Thyroid vascularity is normal. Left Thyroid Lobe: 3.8 x 1.2 x 1.5 cm, volume 3.6 mL. Previously 4.5 x 1.0 x 1.8 cm, volume 4.2 mL. Parenchyma: The gland echotexture is heterogeneous. Thyroid vascularity is normal. Isthmus: 0.22 cm in maximum AP dimension. Previously 0.30 cm. Estimated total number of nodules greater than or equal to 1 cm: 2. Hat And Cap Drying Room Attendant nodules are described as follows: 1.? Location: Right mid. ?? ? Size: 0.91 x 0.38 x 0.72 cm, volume 0.13 mL. ?? ? Previously: 0.99 x 0.41 x 0.72 cm, volume 0.15 mL. ?? ? Nodule characteristics: ?? ? Composition: Spongiform (0). ?? ? Echogenicity: Anechoic (0). ?? ? Shape: Not taller than wide (0). ?? ? Margins: Smooth (0). ?? ? Echogenic Foci: None (0). ? ACR TI-RADS total points: 0 ?? ? ACR TI-RADS category: 1 ? Significant change in size (>/= 20% in 2 dimensions and minimal increase of 2 mm or 50% or greater increase in volume): None ?? ? Change in features: None ?? ? Change in ACR TI-RADS risk category: Not applicable 2.? Location: Right inferior. ?? ? Size: 1.1 x 0.55 x 0.68 cm, volume 0.22 mL. ?? ? Previously: 1.1 x 0.59 x 0.74 cm, volume 0.25 mL. ?? ? Nodule characteristics: ?? ? Composition: Spongiform (0). ?? ? Echogenicity: Anechoic (0). ?? ? Shape: Not taller than wide (0). ?? ? Margins: Smooth (0). ?? ? Echogenic Foci: None (0). ? ACR TI-RADS total points: 0 ?? ? ACR TI-RADS category: 1 ? Significant change in size (>/= 20% in 2 dimensions and minimal increase of 2 mm or 50% or greater increase in volume): None ?? ? Change in features: None ?? ? Change in ACR TI-RADS risk category: Not applicable 3.? Location: Left superior. ?? ? Size: 0.80 x 0.47 x 0.70 cm, volume 0.14 mL. ?? ? Previously: 0.65 x 0.38 x 0.59 cm, volume 0.08 mL. ?? ? Nodule characteristics: ?? ? Composition: Mixed cystic and solid (1). ?? ? Echogenicity: Cannot be determined (1). ?? ? Shape: Not taller than wide (0). ?? ? Margins: Smooth (0). ?? ? Echogenic Foci: None (0). ? ACR TI-RADS total points: 2 ?? ? ACR TI-RADS category: 2 ? Significant change in size (>/= 20% in 2 dimensions and minimal increase of 2 mm or 50% or greater increase in volume): None ?? ? Change in features: None ?? ? Change in ACR TI-RADS risk category: Not applicable 4.? Location: Left inferior. ?? ? Size: 1.3 x 0.59 x 0.44 cm, volume 0.18 mL. ?? ? Previously: 0.89 x 0.55 x 0.82 cm, volume 0.21 mL. ?? ? Nodule characteristics: ?? ? Composition: Mixed cystic and solid (1). ?? ? Echogenicity: Cannot be determined (1). ?? ? Shape: Not taller than wide (0). ?? ? Margins: Smooth (0). ?? ? Echogenic Foci: None (0).? ACR TI-RADS total points: 2 ?? ? ACR TI-RADS category: 2 ? Significant change in size (>/= 20% in 2 dimensions and minimal increase of 2 mm or 50% or greater increase in volume): None ?? ? Change in features: None ?? ? Change in ACR TI-RADS risk category: Not applicable 5.? Location: Left superior. ?? ? Size: 0.66 x 0.43 x 0.56 cm, volume 0.08 mL. ?? ? Previously: 0.87 x 0.55 x 0.75 cm, volume 0.19 mL. ?? ? Nodule characteristics: ?? ? Composition: Solid (2). ?? ? Echogenicity: Hypoechoic (2). ?? ? Shape: Not taller than wide (0). ?? ? Margins: Smooth (0). ?? ? Echogenic Foci: None (0). ? ACR TI-RADS total points: 4 ?? ? ACR TI-RADS category: 4 ? Significant change in size (>/= 20% in 2 dimensions and minimal increase of 2 mm or 50% or greater increase in volume): None ?? ? Change in features: None ?? ? Change in ACR TI-RADS risk category: Not applicable NODES: No lymphadenopathy is seen in the tissue surrounding the thyroid gland. Labs: Laboratory Tests 06/26/21 10/09/21 10/09/21 08:28 12:08 12:08 Albumin 4.0 25-OH Vitamin D To philomena 33.2 TSH 1.60 Free T4 0.74 PTH Intact 51 Calcium (PTH Intac t) 10.0 PFSH Medical History (Updated 01/29/23 @ 09:29 by TIROS Corbin) Elevated LFTs Adult general medical exam Medicare annual wellness visit, initial Dysuria Urinary tract infection Cataract Impaired fasting glucose Pure hypercholesterolemia Benign essential hypertension Palpitations Vitamin D deficiency Multinodular thyroid Osteoporosis Anxiety Surgical History History of mandibular surgery History of lobectomy of thyroid Family History Father ALS (amyotrophic lateral sclerosis) Mother Diabetes Social History Housing: House Alcohol intake: current Alcohol intake frequency: holidays/special occasions only Alcohol type: wine Patient Tobacco Use Status: Former Tobacco user Tobacco use type: Cigarette e-Cigarette/Vaping Use: Never Used Second Hand Smoke Exposure: No service: No Current occupational status: retired Cognitive needs: No Hearing needs: No Vision needs: Yes (reading glasses) Physical Exam Vital Signs: Last Vital Signs Pulse 66 04/09/23 10:49 BP 138/76 04/09/23 10:49 BMI result Body Mass Index 24.4 Const Other: Thyroid gland is normal size weighs about 15 g . There are no thyroid nodules palpated Assessment & Plan Assessment & Plan (1) Osteoporosis: Code(s): M81.0 - Age-related osteoporosis without current pathological fracture Qualifiers: Osteoporosis type: unspecified Presence of current pathological fracture: unspecified Qualified Code(s): M81.0 - Age-related osteoporosis without current pathological fracture Plan: This 72-year-old white female with a history of osteoporosis treated many years with anti resorptive therapy with a history of osteonecrosis of the jaw. Secondary workup was negative Plan is to continue calcium and vitamin-D supplementation. At this point, patient returned to the care of her primary care provider. A repeat DEXA should be performed in about 1 year's time and if her bone density declines significantly, she referred back to endocrinology (2) Multinodular thyroid: Code(s): E04.2 - Nontoxic multinodular goiter Plan: History of multinodular goiter FNA biopsy 01/29/19 by ma of a L mid pole 1.1 cm thyroid nodule, and a R mid pole 1.2 cm thyroid nodule, both with Benign (Lindside Category II) cytology. Recent ultrasound shows stability in the size of the nodules. At this point, patient returned to the care of her primary care provider. Repeat thyroid ultrasound should be performed in about 1-2 years time and if this significant change in the size or characteristics of the nodule, patient returned back to and Coding Level of Care Code Est Pt Level 3 (67263) Diagnoses Osteoporosis, unspecified osteoporosis type, unspecified pathological fracture presence M81.0 Osteoporosis type: unspecified Presence of current pathological fracture: unspecified Multinodular thyroid E04.2
== END 2023-04-09 11:30 | disposition home or self-care (01) ==
PROVIDERS: PCP Internal Medicine; Visit Provider Internal Medicine Endocrinology, Diabetes & Metabolism
DX: M81.0 Age-related osteoporosis without current pathological fracture (principal); E04.2 Nontoxic multinodular goiter
CPT/HCPCS: 99213

== ENCOUNTER → 2023-04-09 10:46 | Outpatient (BNVA) | payer MEDICARE, SELFPAY | PROVIDERS: PCP Internal Medicine; Visit Provider Internal Medicine Endocrinology, Diabetes & Metabolism | DX: M81.0 Age-related osteoporosis without current pathological fracture (principal); E04.2 Nontoxic multinodular goiter | CPT/HCPCS: 99212 ==

== ENCOUNTER 2023-06-03 07:22 | Outpatient (REF) | payer MEDICARE, SELFPAY ==
[2023-06-03 07:37] LABS: MANUAL DIFF FLAG NO
[2023-06-03 08:22] LABS: Basophils Percent Auto 0.2 % (0-2); Eosinophils Absolute Auto 0.1 X10*3/uL (0.0-0.4); Eosinophils Percent Auto 1.1 % (0-4); Hematocrit 38.8 % (37.0-47.0); Imm Gran Abs Auto 0.01 X10*3/uL (0.00-0.03); Imm Gran Pct Auto 0.2 % (0.0-0.4); Lymphocytes Absolute Auto 1.8 X10*3/uL (1.2-4.9); Lymphocytes Percent Auto 41.3 % (20-40); Mean Corpuscular HGB Conc 33.5 g/dl (31.0-35.0); Mean Corpuscular Volume 92.4 fL (80.0-98.0); Mean Platelet Volume 9.5 fL (9.4-12.3); Monocytes Absolute Auto 0.4 X10*3/uL (0.1-1.2); Neutrophils Absolute Auto 2.2 x10*3/uL (2.0-8.3); Neutrophils Percent Auto 48.2 % (45-73); Platelet Count 333 X10*3/uL (160-400); Red Cell Distribution Width 12.6 % (11.0-16.0); White Blood Count 4.5 X10*3/uL (4.8-10.8)
[2023-06-03 09:07] LABS: Alanine Aminotransferase 19 U/L (0-31); Alkaline Phosphatase 69 U/L (39-117); Anion Gap 10 (12-20); Aspartate Amino Transferase 21 U/L (5-31); Bilirubin Total 0.5 mg/dL (0.0-1.0); Blood Urea Nitrogen 13 mg/dL (9-16); Calcium 9.1 mg/dL (8.4-10.2); Carbon Dioxide 27 mmol/L (22-29); Chloride 106 mmol/L (96-108); Cholesterol 164 mg/dL (<200); Estimated Glomerular Filt Rate > 60; Glucose Fasting 88 mg/dL (60-99); HDL Cholesterol 53 mg/dL (>40); LDL Cholesterol Calculated 96 mg/dL (<100); Sodium 139 mmol/L (135-145); Total Protein 6.3 g/dL (6.5-8.0); Triglycerides 78 mg/dL (<150)
[2023-06-03 09:22] LABS: TSH reflex Free T4 1.28 uIU/mL (0.32-4.0)
== END 2023-06-03 07:23 | disposition home or self-care (01) ==
LOC: HO.LAB 07:22
PROVIDERS: PCP Nurse Practitioner Family; Visit Provider Nurse Practitioner Family
DX: I10 Essential (primary) hypertension (principal); E04.2 Nontoxic multinodular goiter; E78.00 Pure hypercholesterolemia, unspecified; R73.01 Impaired fasting glucose
CPT/HCPCS: 36415; 80053; 80061; 84443; 85025

== ENCOUNTER 2023-06-05 10:44 | Outpatient (AMB) | payer MEDICARE, SELFPAY ==
[2023-06-05 10:58] VITALS: BP 120/74; PULSE 73; O2SAT 98; BMI 23.1
--- NOTE | 2023-06-05 10:58 | A.OFFPC_ITS ---
Vital Signs 06/05/23 10:58 Height 5 ft 3 in Weight 130 lb 6 oz BMI 23.1 BP 120/74 Blood Pressure Location Lt brachial Position Sitting Pulse 73 Pulse Source Pulse Oximeter Pulse Oximetry (%) 98 Oxygen Delivery Method Room Air Intake Visit Reasons: cholesterol Orthotic Fitter Required: No Accompanied by: Self / Same As Patient Allergies latex Allergy (Unknown, Verified 06/05/23 11:17) unknown Medication List - Last Reconciled 06/05/23 by Jose Alfredo Pandey MD atorvastatin 40 mg PO DAILY calcium carbonate (Calcium) 600 mg PO DAILY lisinopril 5 mg PO DAILY 90 days phentermine 37.5 mg PO DAILY 30 days venlafaxine ER 37.5 mg PO DAILY Tobacco use date assessed: 06/05/23 Fall risk assessment: No Falls in past year Last assessed Fall Risk: 06/05/23 Dental Screening Dental Screen Date: 06/05/23 Did you have a dental visit in the last 12 months?: Yes Did you have a dental problem in the last 6 months where you did not have access to dental care?: No Was dental information given to patient?: Patient has dentist HPI cholesterol HPI Details Patient comes in today for her follow up visit States that she continues to struggle with difficulty sleeping at night, which she states that she has been dealing with all of her life Has tried taking Lorazepam in the past but finds that Lorazepam knocks her out too much She has also tried several OTC sleep aids before but finds that they do not work for her States that she does not and cannot take any naps during the day States that she feels okay otherwise and denies any headaches or dizziness Denies any chest pains, no SOB No nausea/vomiting, no abdominal pain No change in bowel habits noted Had her follow up labs done a couple of days ago - to discuss her results FOR[facility] Medical History (Updated 06/05/23 @ 12:13 by Jose Alfredo Pandey MD) Insomnia Elevated LFTs Adult general medical exam Medicare annual wellness visit, initial Dysuria Urinary tract infection Cataract Impaired fasting glucose Pure hypercholesterolemia Benign essential hypertension Palpitations Vitamin D deficiency Multinodular thyroid Osteoporosis Anxiety Surgical History History of mandibular surgery History of lobectomy of thyroid Family History Father ALS (amyotrophic lateral sclerosis) Mother Diabetes Social History Housing: House Alcohol intake: current Alcohol intake frequency: holidays/special occasions o nly Alcohol type: wine Patient Tobacco Use Status: Former Tobacco user Tobacco use type: Cigarette e-Cigarette/Vaping Use: Never Used Second Hand Smoke Exposure: No service: No Current occupational status: retired Cognitive needs: No Hearing needs: No Vision needs: Yes (reading glasses) Questionnaire PHQ-9 Over the last 2 weeks, how often have you been bothered by any of the following problems? 1. Little interest or pleasure in doing things: not at all 2. Feeling down, depressed, or hopeless: not at all 3. Trouble falling or staying asleep, or sleeping too much: not at all 4. Feeling tired or having little energy: not at all 5. Poor appetite or overeating: not at all 6. Feeling bad about yourself - or that you are a failure or have let yourself or your family down: not at all 7. Trouble concentrating on things, such as reading the newspaper or watching television: not at all 8. Moving or speaking so slowly that other people could have noticed. Or the opposite - being so fidgety or restless that you have been moving around a lot more than usual: not at all 9. Thoughts that you would be better off or of hurting yourself in some way: not at all Total score: 0 Depression Screening Interpretation: Negative Depression Screening Done: Yes 31094 - PHQ-9 Billing: Yes Source: Developed by Drs. Niels Pearce, Aspen Gardner, Tyree Ayala and colleagues, with an educational bon from [employer]. Thrive Questionnaire Date Thrive assessed: 06/05/23 I am a: Patient What is your living situation today?: I have a steady place to live Within the past 12 months, did the food you bought not last and you didn't have the money to get more?: Never true Within the past 12 months, did you worry whether your food would run out before you got money to buy more?: Never true Do you have trouble paying for medicines?: No Do you have trouble getting transportation to medical appointments?: No Do you have trouble paying your heating and electricity bill?: No Do you have trouble taking care of your child, family member or friend?: No Do you have trouble with day-to-day activities such as bathing, preparing meals, shopping, managing finances, etc.?: No Are you currently unemployed and looking for a job?: No Are you interested in more education?: No Currently or been in a relationship where the following occur: no concerns reported THRIVE Score: 0 AUDIT C Alcohol Use Questionnaire (AUDIT-C) 1. How often do you have a drink containing alcohol?: Never 3. How often do you have six or more drinks on one occasion?: Never Total Score: 0 Score Reviewed/Action Taken: Yes BRIDGETTE-7 AMB Questionnaire BRIDGETTE-7 Date BRIDGETTE - 7 assessed: 06/05/23 Feeling nervous, anxious, or on edge: 0 = Not at all Not being able to stop or control worryin = Not at all Worrying too much about different things: 0 = Not at all Trouble relaxin = Not at all Being so restless that it is hard to sit still: 0 = Not at all Becoming easily annoyed or irritable: 0 = Not at all Feeling afraid as if something awful might happen: 0 = Not at all Total BRIDGETTE-7 score (0-4 normal; 5-9 mild; 10-14 moderate; 15-21 severe): 0 Source: Developed by Drs. Niels Pearce, Aspen Gardner, Tyree Ayala and colleagues, with an educational bon from [employer]. Review of Systems Const Denies chills, Denies daytime sleepiness, Reports difficulty sleeping, Denies fatigue, Denies fever(s) and Denies headache(s) ENT Denies dysphagia, Denies dizziness, Denies otalgia, Denies headache(s), Denies odynophagia and Denies sore throat Card Denies chest pain, Denies palpitations and Denies dyspnea Resp Denies cough, Denies dyspnea and Denies wheezing GI Denies abdominal pain, Denies constipation, Denies dysphagia, Denies heartburn, Denies diarrhea, Denies nausea, Denies odynophagia and Denies vomiting Denies hematuria, Denies difficulty voiding, Denies dysuria, Denies urinary incontinence and Denies urinary urgency Musc Denies back pain and Denies arthralgias Skin/Breast Denies rash Neuro Denies dizziness and Denies headache(s) Endo Denies fatigue and Denies palpitations Aller/Immun Denies wheezing Physical exam (Primary Care) Vital Signs: Last Vital Signs Pulse 73 06/05/23 10:58 BP 120/74 06/05/23 10:58 Pulse Ox 98 06/05/23 10:58 Oxygen Delivery Method Room Air 06/05/23 10:58 BMI result Body Mass Index 23.1 Tobacco/Smoking Status: Tobacco use Status Tobacco use date assessed 06/05/23 06/05/23 10:59 Patient Tobacco Use Status Former Tobacco user 06/05/23 10:59 Tobacco use type Cigarette 06/05/23 10:59 e-Cigarette/Vaping Use Never Used 06/05/23 10:59 PHQ-9: PHQ-9 Score PHQ-9: Total score 0 06/05/23 11:21 Depression Screening Interpretation: Negative Thrive Assessment: Date of Thrive Assessment Date Thrive assessed 06/05/23 06/05/23 10:59 Currently or been in a relationship where the following occur: no concerns reported Const General: no acute distress and alert HENMT Ears: TM's normal bilaterally and EAC's normal Throat: Yes posterior oropharynx normal and Yes tonsils normal (no TP congestion noted) Neck Neck: Yes no lymphadenopathy and Yes supple Thyroid: Thyroid normal Resp Auscultation: clear to auscultation bilaterally, no rales and no wheezes Cardio Rate: regular rate Rhythm: regular rhythm Heart sounds: no murmurs GI Palpation (GI): Soft to palpation and nontender Auscultation: normal bowel sounds General: Yes no CVA tenderness Back/Spine/Pelvis Back: no CVA tenderness Skin Rashes: no rashes Extrem General: Yes no clubbing, cyanosis or edema Results Reviewed Results Reviewed: Laboratory Tests 01/25/23 06/03/23 06/03/23 08:14 07:32 07:32 WBC 4.5 L Hgb 13.0 Hct 38.8 Plt Count 333 Sodium 139 Potassium 4.0 Creatinine 0.62 Estimated GFR > 60 Fasting Glucose 88 Calcium 9.1 D AST 21 ALT 19 Triglycerides 78 Cholesterol 164 LDL Cholesterol, Calc 96 HDL Cholesterol 53 25-OH Vitamin D Total 40.0 TSH 1.28 Assessment and Plan Assessment & Plan (1) Pure hypercholesterolemia: Code(s): E78.00 - Pure hypercholesterolemia, unspecified Plan: Results of her labs done a couple of days ago reviewed and discussed with patient Reinforced low cholesterol diet Continue Atorvastatin 40 mg QD Will recheck her labs and fasting lipids in 4 months for follow up (2) Benign essential hypertension: Code(s): I10 - Essential (primary) hypertension Plan: Reinforced low sodium diet - goal is systolic BP of at least 130 mm or less Continue Lisinopril 5 mg QD (3) Impaired fasting glucose: Code(s): R73.01 - Impaired fasting glucose Plan: HgbA1c was normal at 4.9% when checked previously; FBS was normal at 88 mg/dl on her labs done a couple of days ago Reinforced low calorie diet/exercise as tolerated (4) Multinodular thyroid: Code(s): E04.2 - Nontoxic multinodular goiter Plan: FNA and thyroid scan done in the past were normal and thyroid nodules were confirmed to be benign on Bx Will continue to monitor with thyroid ultrasound regularly for follow-up - most recent thyroid ultrasound done in 09/2021 showed (+) nonspecific nodules She was following up with endocrinology previously and was advised at her recent visit with endocrinology in March 2023 that she can just follow up with her PCP and get a follow up thyroid US in 1 to 2 years and return to endocrinology only as needed (5) Vitamin D deficiency: Code(s): E55.9 - Vitamin D deficiency, unspecified Plan: Corrected - will continue to monitor Vitamin D level regularly (6) Osteoporosis: Code(s): M81.0 - Age-related osteoporosis without current pathological fracture Qualifiers: Osteoporosis type: unspecified Presence of current pathological fracture: unspecified Qualified Code(s): M81.0 - Age-related osteoporosis without current pathological fracture Plan: Repeat BMD done in September 2021 showed no significant change in BMD from previous done a couple of years ago in September 2017 Initial BMD done in 2010 showed (+) osteoporosis but BMD has since improved and she is currently in the osteopenic range - S/P Tx with oral Bisphosphonate for a total of approximately 15 years; Rx stopped in 02/2018. Patient developed osteonecrosis of the jaw - additional antiresorptive treatment is therefore contraindicated. Patient has been off Tx since 02/2018 and anabolic Tx is the only option available to her at this time if additional Tx is needed Advised to continue for now with optimizing her daily oral calcium intake (is currently on 600 mg daily) Follow up with endocrinology as scheduled (7) Elevated LFTs: Code(s): R79.89 - Other specified abnormal findings of blood chemistry Plan: Patient's LFTs are back to normal on her recent labs - will continue to monitor her LFTs regularly especially since she is on a statin Reinforced weight loss / exercise as tolerated (8) Insomnia: Code(s): G47.00 - Insomnia, unspecified Qualifiers: Insomnia type: primary Qualified Code(s): F51.01 - Primary insomnia Plan: Discussed sleep hygiene Will start patient on a trial of Trazodone 50 mg Q HS PRN Advised that if she feels that 50 mg is too strong or sedating for her, she can cut it in half to 25 mg Q HS PRN (9) Anxiety: Code(s): F41.9 - Anxiety disorder, unspecified Plan: Continue Venlafaxine ER 37.5 mg QD Plan Follow up in 4 months Orders: Orders Comprehensive [place]. Panel Fast 4 Months E78.00 - Pure hypercholesterolemia, unspecified Lipid Panel 4 Months E78.00 - Pure hypercholesterolemia, unspecified TSH reflex Free T4 4 Months E78.00 - Pure hypercholesterolemia, unspecified UA CC w/rflx Micro + Cult 4 Months R30.0 - Dysuria Complete Blood Count Auto Diff 4 Months D64.9 - Anemia, unspecified Vitamin D 25-OH Total 4 Months E55.9 - Vitamin D deficiency, unspecified Medications: New trazodone 50 mg PO BEDTIME PRN 30 tabs 3RF insomnia Coding Level of Care Code Est Pt Level 4 (12611) Diagnoses Pure hypercholesterolemia E78.00 Benign essential hypertension I10 Impaired fasting glucose R73.01 Multinodular thyroid E04.2 Vitamin D deficiency E55.9 Osteoporosis, unspecified osteoporosis type, unspecified pathological fracture presence M81.0 Osteoporosis type: unspecified Presence of current pathological fracture: unspecified Elevated LFTs R79.89 Primary insomnia F51.01 Insomnia type: primary Anxiety F41.9
== END 2023-06-05 11:43 | disposition home or self-care (01) ==
PROVIDERS: PCP Internal Medicine; Visit Provider Internal Medicine
DX: E78.00 Pure hypercholesterolemia, unspecified (principal); I10 Essential (primary) hypertension; R73.01 Impaired fasting glucose; E04.2 Nontoxic multinodular goiter; E55.9 Vitamin D deficiency, unspecified; M81.0 Age-related osteoporosis without current pathological fracture; R79.89 Other specified abnormal findings of blood chemistry; F51.01 Primary insomnia; F41.9 Anxiety disorder, unspecified
CPT/HCPCS: 99214

== ENCOUNTER 2023-10-04 08:11 | Outpatient (REF) | payer MEDICARE, SELFPAY ==
[2023-10-04 08:30] LABS: MANUAL DIFF FLAG NO
[2023-10-04 09:04] LABS: Basophils Percent Auto 0.2 % (0-2); Eosinophils Absolute Auto 0.1 X10*3/uL (0.0-0.4); Hemoglobin 13.4 g/dl (12.0-16.0); Imm Gran Abs Auto 0.01 X10*3/uL (0.00-0.03); Imm Gran Pct Auto 0.2 % (0.0-0.4); Lymphocytes Percent Auto 38.6 % (20-40); Mean Corpuscular HGB Conc 33.5 g/dl (31.0-35.0); Mean Corpuscular Hemoglobin 31.2 pg (27.0-33.0); Mean Corpuscular Volume 93.2 fL (80.0-98.0); Mean Platelet Volume 9.5 fL (9.4-12.3); Monocytes Absolute Auto 0.4 X10*3/uL (0.1-1.2); Monocytes Percent Auto 6.9 % (2-11); Neutrophils Absolute Auto 2.7 x10*3/uL (2.0-8.3); Neutrophils Percent Auto 53.1 % (45-73); Platelet Count 331 X10*3/uL (160-400); Red Blood Count 4.29 X10*6/uL (4.20-5.50); Red Cell Distribution Width 12.3 % (11.0-16.0); White Blood Count 5.1 X10*3/uL (4.8-10.8)
[2023-10-04 09:40] LABS: Appearance Urine Clear; Color Urine Yellow; Glucose Urine UA Negative (Negative); Leukocyte Esterase Urine Moderate (2+) (Negative); Nitrite Urine Negative (Negative); Specific Gravity - Urine 1.015 (1.005-1.025); UMIC TRIGGER UACC YES; Urine Blood Negative (Negative); Urine Ketones Negative (Negative); Urine Protein Negative (Neg-Trace)
[2023-10-04 09:47] LABS: Bacteria Urine Trace (None Seen); Hyaline Casts Urine 0-2 /LPF (0-2); RBC Urine 0-2 /HPF (0-2); UACC Culture Trigger YES
[2023-10-04 10:05] LABS: Alanine Aminotransferase 23 U/L (0-31); Albumin Level 4.3 g/dL (3.5-5.0); Alkaline Phosphatase 65 U/L (39-117); Anion Gap 13 (12-20); Aspartate Amino Transferase 25 U/L (5-31); Bilirubin Total 0.6 mg/dL (0.0-1.0); Blood Urea Nitrogen 10 mg/dL (9-16); Calcium 9.9 mg/dL (8.4-10.2); Carbon Dioxide 28 mmol/L (22-29); Chloride 107 mmol/L (96-108); Cholesterol 182 mg/dL (<200); Estimated Glomerular Filt Rate > 60; Glucose Fasting 83 mg/dL (60-99); HDL Cholesterol 53 mg/dL (>40); LDL Cholesterol Calculated 99 mg/dL (<100); Potassium 4.5 mmol/L (3.3-5.1); Sodium 143 mmol/L (135-145); Total Protein 6.9 g/dL (6.5-8.0); Triglycerides 150 mg/dL (<150)
[2023-10-04 10:07] LABS: TSH reflex Free T4 1.86 uIU/mL (0.32-4.0); Vitamin D 25-OH Total 34.2 ng/mL (>30)
== END 2023-10-04 08:12 | disposition home or self-care (01) ==
LOC: HO.LAB 08:11
PROVIDERS: PCP Internal Medicine; Visit Provider Internal Medicine
DX: E78.00 Pure hypercholesterolemia, unspecified (principal); D64.9 Anemia, unspecified; E55.9 Vitamin D deficiency, unspecified; R30.0 Dysuria
CPT/HCPCS: 36415; 80053; 80061; 81001; 82306; 84443; 85025; 87086

== ENCOUNTER 2023-10-08 10:53 | Outpatient (AMB) | payer MEDICARE, SELFPAY ==
[2023-10-08 10:57] VITALS: BP 124/80; PULSE 70; O2SAT 97; BMI 23.9
--- NOTE | 2023-10-08 10:57 | MHC.PC.OV ---
Vital Signs 10/08/23 10:57 Height 5 ft 3 in Weight 135 lb BMI 23.9 BP 124/80 Blood Pressure Location Lt brachial Position Sitting Pulse 70 Pulse Source Pulse Oximeter Pulse Oximetry (%) 97 Oxygen Delivery Method Room Air Intake Visit Reasons: 4 month f/u Intake Note: Patient is here to follow up on 4 months Allergies latex Allergy (Unknown, Verified 10/08/23 11:22) unknown Medication List - Last Reconciled 10/08/23 by Jose Alfredo Pandey MD atorvastatin 40 mg PO DAILY calcium carbonate (Calcium 600) 600 mg PO DAILY lisinopril 5 mg PO DAILY 90 days phentermine 37.5 mg PO DAILY 30 days trazodone 50 mg PO BEDTIME PRN venlafaxine ER 37.5 mg PO DAILY Tobacco use date assessed: 06/05/23 Fall risk assessment: No Falls in past year Last assessed Fall Risk: 10/08/23 Dental Screening Dental Screen Date: 06/05/23 HPI 4 month f/u HPI Details Patient comes in today for her follow up visit States that she feels okay except for increased allergy symptoms (runny nose, congestion, sneezing) lately She denies any headaches or dizziness; denies any fever or sore throat Denies any chest pains, no SOB No nausea/vomiting, no abdominal pain No change in bowel habits noted Had her follow up labs done a few days ago - to discuss her results [facility] Medical History (Updated 10/09/23 @ 06:19 by Jose Alfredo Pandey MD) Allergic rhinitis Insomnia Elevated LFTs Adult general medical exam Medicare annual wellness visit, initial Dysuria Urinary tract infection Cataract Impaired fasting glucose Pure hypercholesterolemia Benign essential hypertension Palpitations Vitamin D deficiency Multinodular thyroid Osteoporosis Anxiety Surgical History History of mandibular surgery History of lobectomy of thyroid Family History Father ALS (amyotrophic lateral sclerosis) Mother Diabetes Social History Housing: House Alcohol intake: current Alcohol intake frequency: holidays/special occasions only Alcohol type: wine Patient Tobacco Use Status: Former Tobacco user Tobacco use type: Cigarette e-Cigarette/Vaping Use: Never Used Second Hand Smoke Exposure: No service: No Current occupational status: retired Cognitive needs: No Hearing needs: No Vision needs: Yes (reading glasses) Questionnaire Thrive Questionnaire Date Thrive assessed: 06/05/23 I am a: Patient What is your living situation today?: I have a steady place to live Within the past 12 months, did the food you bought not last and you didn't have the money to get more?: Never true Within the past 12 months, did you worry whether your food would run out before you got money to buy more?: Never true Do you have trouble paying for medicines?: No Do you have trouble getting transportation to medical appointments?: No Do you have trouble paying your heating and electricity bill?: No Do you have trouble taking care of your child, family member or friend?: No Do you have trouble with day-to-day activities such as bathing, preparing meals, shopping, managing finances, etc.?: No Are you currently unemployed and looking for a job?: No Are you interested in more education?: No Currently or been in a relationship where the following occur: no concerns reported THRIVE Score: 0 AUDIT C Alcohol Use Questionnaire (AUDIT-C) 1. How often do you have a drink containing alcohol?: Never 3. How often do you have six or more drinks on one occasion?: Never Total Score: 0 Score Reviewed/Action Taken: Yes BRIDGETTE-7 AMB Questionnaire BRIDGETTE-7 Date BRIDGETTE - 7 assessed: 06/05/23 Source: Developed by Drs. Niels Pearce, Aspen Gardner, Tyree Ayala and colleagues, with an educational bon from [employer]. Review of Systems Const Denies chills, Reports difficulty sleeping, Denies fatigue, Denies fever(s) and Denies headache(s) ENT Denies dysphagia, Denies dizziness, Denies otalgia, Denies headache(s), Reports nasal discharge (on and off), Denies neck pain, Denies odynophagia and Denies sore throat Card Denies chest pain, Denies palpitations and Denies dyspnea Resp Denies cough, Denies dyspnea and Denies wheezing GI Denies abdominal pain, Denies constipation, Denies dysphagia, Denies heartburn, Denies diarrhea, Denies nausea, Denies odynophagia and Denies vomiting Denies hematuria, Denies difficulty voiding, Denies dysuria, Denies urinary incontinence and Denies urinary urgency Musc Denies back pain, Denies arthralgias and Denies neck pain Skin/Breast Denies rash Neuro Denies dizziness and Denies headache(s) Endo Denies fatigue and Denies palpitations Aller/Immun Reports seasonal rhinorrhea and Denies wheezing Physical exam (Primary Care) Vital Signs: Last Vital Signs Pulse 70 10/08/23 10:57 BP 124/80 10/08/23 10:57 Pulse Ox 97 10/08/23 10:57 Oxygen Delivery Method Room Air 10/08/23 10:57 BMI result Body Mass Index 23.9 Tobacco/Smoking Status: Tobacco use Status Tobacco use date assessed 06/05/23 10/08/23 11:02 Patient Tobacco Use Status Former Tobacco user 10/08/23 11:02 Tobacco use type Cigarette 10/08/23 11:02 e-Cigarette/Vaping Use Never Used 10/08/23 11:02 Thrive Assessment: Date of Thrive Assessment Date Thrive assessed 06/05/23 10/08/23 11:02 Currently or been in a relationship where the following occur: no concerns reported Const General: no acute distress and alert HENMT Ears: TM's normal bilaterally and EAC's normal Throat: Yes posterior oropharynx normal and Yes tonsils normal (no TP congestion noted) Neck Neck: Yes no lymphadenopathy and Yes supple Thyroid: Thyroid normal Resp Auscultation: clear to auscultation bilaterally, no rales and no wheezes Cardio Rate: regular rate Rhythm: regular rhythm Heart sounds: no murmurs GI Palpation (GI): Soft to palpation and nontender Auscultation: normal bowel sounds General: Yes no CVA tenderness Back/Spine/Pelvis Back: no CVA tenderness Thoracic/Lumbar Spine: No lumbar spinal tenderness Skin Rashes: no rashes Extrem General: Yes no clubbing, cyanosis or edema Results Reviewed Results Reviewed: Laboratory Tests 10/04/23 10/04/23 07:35 08:29 WBC 5.1 Hgb 13.4 Hct 40.0 Plt Count 331 Sodium 143 Potassium 4.5 Creatinine 0.62 Estimated GFR > 60 Fasting Glucose 83 Calcium 9.9 D AST 25 ALT 23 Triglycerides 150 H Cholesterol 182 LDL Cholesterol, Calc 99 HDL Cholesterol 53 25-OH Vitamin D Total 34.2 TSH 1.86 Ur Specific [place] 1.015 Urine Protein Negative Urine Glucose (UA) Negative Urine Blood Negative Urine Nitrite Negative Ur Leukocyte Esterase Moderate (2+) H Assessment and Plan Assessment & Plan (1) Pure hypercholesterolemia: Code(s): E78.00 - Pure hypercholesterolemia, unspecified Plan: Results of her labs done a few days ago reviewed and discussed with patient - she is advised that her serum triglyceride level has increased significantly from previous although her cholesterol levels are overall still in the normal range Patient has gained a few pounds since her last visit and admits that she just recently got back from a vacation trip to [place] [employer] Reinforced low cholesterol diet Continue Atorvastatin 40 mg QD Will recheck her labs and fasting lipids in 4 months for follow up (2) Benign essential hypertension: Code(s): I10 - Essential (primary) hypertension Plan: Reinforced low sodium diet - goal is systolic BP of at least 130 mm or less Continue Lisinopril 5 mg QD (3) Impaired fasting glucose: Code(s): R73.01 - Impaired fasting glucose Plan: HgbA1c was normal at 4.9% when checked previously; FBS was normal at 83 mg/dl on her labs done a few days ago Reinforced low calorie diet/exercise as tolerated (4) Multinodular thyroid: Code(s): E04.2 - Nontoxic multinodular goiter Plan: FNA and thyroid scan done in the past were normal and thyroid nodules were confirmed to be benign on Bx Will continue to monitor with thyroid ultrasound regularly for follow-up - most recent thyroid ultrasound done in 09/2021 showed (+) nonspecific nodules She was following up with endocrinology previously and was advised at her recent visit with endocrinology in March 2023 that she can just follow up with her PCP and get a follow up thyroid US in 1 to 2 years and return to endocrinology only as needed Will consider repeating her thyroid US later this year for follow up (5) Vitamin D deficiency: Code(s): E55.9 - Vitamin D deficiency, unspecified Plan: This was again normal on her recent labs Will continue to monitor her Vitamin D level regularly (6) Allergic rhinitis: Code(s): J30.9 - Allergic rhinitis, unspecified Qualifiers: Allergic rhinitis trigger: pollen Allergic rhinitis seasonality: seasonal Qualified Code(s): J30.1 - Allergic rhinitis due to pollen Plan: Will start patient on Loratadine 10 mg QD PRN (7) Osteoporosis: Code(s): M81.0 - Age-related osteoporosis without current pathological fracture Qualifiers: Osteoporosis type: unspecified Presence of current pathological fracture: unspecified Qualified Code(s): M81.0 - Age-related osteoporosis without current pathological fracture Plan: Repeat BMD done in September 2021 showed no significant change in BMD from previous done a couple of years ago in September 2017 Initial BMD done in 2010 showed (+) osteoporosis but BMD has since improved and she is currently in the osteopenic range - S/P Tx with oral Bisphosphonate for a total of approximately 15 years; Rx stopped in 02/2018. Patient developed osteonecrosis of the jaw - additional antiresorptive treatment is therefore now contraindicated. Patient has been off Tx since 02/2018 and anabolic Tx is the only option available to her at this time if additional Tx is needed She is advised to continue for now with optimizing her daily oral calcium intake (is currently on 600 mg daily) Follow up with endocrinology as scheduled (8) Elevated LFTs: Code(s): R79.89 - Other specified abnormal findings of blood chemistry Plan: Patient's LFTs have remained normal on her recent labs - will continue to monitor her LFTs regularly especially since she is on a statin Reinforced weight loss / exercise as tolerated (9) Insomnia: Code(s): G47.00 - Insomnia, unspecified Qualifiers: Insomnia type: primary Qualified Code(s): F51.01 - Primary insomnia Plan: Sleep hygiene reinforced Continue Trazodone 50 mg 1/2 to 1 tablet Q HS PRN (10) Anxiety: Code(s): F41.9 - Anxiety disorder, unspecified Plan: Continue Venlafaxine ER 37.5 mg QD Plan Follow up in 4 months Orders: Orders Comprehensive [place]. Panel Fast 4 Months E78.00 - Pure hypercholesterolemia, unspecified Complete Blood Count Auto Diff 4 Months D64.9 - Anemia, unspecified Lipid Panel 4 Months E78.00 - Pure hypercholesterolemia, unspecified TSH reflex Free T4 4 Months E04.2 - Nontoxic multinodular goiter Vitamin D 25-OH Total 4 Months E55.9 - Vitamin D deficiency, unspecified UA CC w/rflx Micro + Cult 4 Months R30.0 - Dysuria Medications: New loratadine 10 mg PO DAILY 90 days PRN 90 tabs 3RF allergy symptoms J30.9 - Allergic rhinitis, unspecified Coding Level of Care Code Est Pt Level 4 (33811) Diagnoses Pure hypercholesterolemia E78.00 Benign essential hypertension I10 Impaired fasting glucose R73.01 Multinodular thyroid E04.2 Vitamin D deficiency E55.9 Seasonal allergic rhinitis due to pollen J30.1 Allergic rhinitis trigger: pollen Allergic rhinitis seasonality: seasonal Osteoporosis, unspecified osteoporosis type, unspecified pathological fracture presence M81.0 Osteoporosis type: unspecified Presence of current pathological fracture: unspecified Elevated LFTs R79.89 Primary insomnia F51.01 Insomnia type: primary Anxiety F41.9
== END 2023-10-08 11:36 | disposition home or self-care (01) ==
PROVIDERS: PCP Nurse Practitioner Family; Visit Provider Internal Medicine
DX: E78.00 Pure hypercholesterolemia, unspecified (principal); I10 Essential (primary) hypertension; R73.01 Impaired fasting glucose; E04.2 Nontoxic multinodular goiter; E55.9 Vitamin D deficiency, unspecified; J30.1 Allergic rhinitis due to pollen; M81.0 Age-related osteoporosis without current pathological fracture; R79.89 Other specified abnormal findings of blood chemistry; F51.01 Primary insomnia; F41.9 Anxiety disorder, unspecified
CPT/HCPCS: 99214

== ENCOUNTER 2024-02-06 08:46 | Outpatient (REF) | payer MEDICARE, SELFPAY ==
[2024-02-06 09:07] LABS: MANUAL DIFF FLAG NO
[2024-02-06 09:24] LABS: Basophils Percent Auto 0.2 % (0-2); Eosinophils Percent Auto 0.6 % (0-4); Hematocrit 38.6 % (37.0-47.0); Hemoglobin 12.8 g/dl (12.0-16.0); Imm Gran Abs Auto 0.02 X10*3/uL (0.00-0.03); Imm Gran Pct Auto 0.4 % (0.0-0.4); Lymphocytes Absolute Auto 1.7 X10*3/uL (1.2-4.9); Lymphocytes Percent Auto 33.5 % (20-40); Mean Corpuscular HGB Conc 33.2 g/dl (31.0-35.0); Mean Corpuscular Hemoglobin 31.3 pg (27.0-33.0); Mean Corpuscular Volume 94.4 fL (80.0-98.0); Mean Platelet Volume 9.5 fL (9.4-12.3); Monocytes Absolute Auto 0.4 X10*3/uL (0.1-1.2); Monocytes Percent Auto 8.8 % (2-11); Neutrophils Absolute Auto 2.8 x10*3/uL (2.0-8.3); Neutrophils Percent Auto 56.5 % (45-73); Platelet Count 283 X10*3/uL (160-400); Red Blood Count 4.09 X10*6/uL (4.20-5.50); Red Cell Distribution Width 12.2 % (11.0-16.0)
[2024-02-06 09:43] LABS: Appearance Urine Clear; Color Urine Yellow; Glucose Urine UA Negative (Negative); Leukocyte Esterase Urine Small (1+) (Negative); Nitrite Urine Negative (Negative); PH 5.5 (5.0-9.0); Specific Gravity - Urine >= 1.030 (1.005-1.025); UMIC TRIGGER UACC YES; Urine Blood Negative (Negative); Urine Ketones Negative (Negative); Urine Protein Negative (Neg-Trace)
[2024-02-06 09:59] LABS: Bacteria Urine None Seen (None Seen); Hyaline Casts Urine 0-2 /LPF (0-2); RBC Urine 0-2 /HPF (0-2); UACC Culture Trigger YES; WBC Urine 0-5 /HPF (0-5)
[2024-02-06 10:02] LABS: Alanine Aminotransferase 26 U/L (0-31); Albumin Level 4.1 g/dL (3.5-5.0); Alkaline Phosphatase 67 U/L (39-117); Anion Gap 11 (12-20); Aspartate Amino Transferase 28 U/L (5-31); Bilirubin Total 0.5 mg/dL (0.0-1.0); Blood Urea Nitrogen 19 mg/dL (9-16); Calcium 9.5 mg/dL (8.4-10.2); Carbon Dioxide 28 mmol/L (22-29); Chloride 108 mmol/L (96-108); Cholesterol 183 mg/dL (<200); Estimated Glomerular Filt Rate > 60; Glucose Fasting 87 mg/dL (60-99); HDL Cholesterol 54 mg/dL (>40); LDL Cholesterol Calculated 109 mg/dL (<100); Sodium 143 mmol/L (135-145); Total Protein 6.3 g/dL (6.5-8.0); Triglycerides 104 mg/dL (<150)
[2024-02-06 10:19] LABS: TSH reflex Free T4 0.93 uIU/mL (0.32-4.0)
== END 2024-02-06 08:47 | disposition home or self-care (01) ==
LOC: HO.LAB 08:46
PROVIDERS: PCP Internal Medicine; Visit Provider Internal Medicine
DX: E78.00 Pure hypercholesterolemia, unspecified (principal); E55.9 Vitamin D deficiency, unspecified; D64.9 Anemia, unspecified; E04.2 Nontoxic multinodular goiter; R30.0 Dysuria
CPT/HCPCS: 36415; 80053; 80061; 81001; 82306; 84443; 85025; 87086

== ENCOUNTER 2024-02-11 09:56 | Outpatient (AMB) | payer MEDICARE, SELFPAY ==
[2024-02-11 10:09] VITALS: BP 148/80; PULSE 78; O2SAT 97
--- NOTE | 2024-02-11 10:09 | MHC.PC.OV ---
Vital Signs 02/11/24 10:09 02/11/24 10:59 Height 5 ft 3 in BMI Reason not done Patient refused/unable BP 148/80 H 136/88 Blood Pressure Location Lt brachial Lt brachial Position Sitting Sitting Pulse 78 Pulse Source Pulse Oximeter Pulse Oximetry (%) 97 Oxygen Delivery Method Room Air Intake Visit Reasons: hyperlipidemia, HTN Customer Service Specialist Required: No Accompanied by: Self / Same As Patient Allergies latex Allergy (Unknown, Verified 03/02/24 09:17) unknown Medication List - Last Reconciled 03/02/24 by Jose Alfredo Pandey MD atorvastatin 40 mg PO DAILY calcium carbonate (Calcium 600) 600 mg PO DAILY lisinopril 5 mg PO DAILY 90 days loratadine 10 mg PO DAILY PRN 90 days phentermine 37.5 mg PO DAILY 30 days trazodone 50 mg PO BEDTIME PRN venlafaxine ER 37.5 mg PO DAILY Tobacco use date assessed: 06/05/23 Fall risk assessment: No Falls in past year Last assessed Fall Risk: 02/11/24 Dental Screening Dental Screen Date: 06/05/23 HPI hyperlipidemia, HTN HPI Details Patient comes in today for her follow up visit States that she feels okay She denies any headaches or dizziness Denies any chest pains, no SOB No nausea/vomiting, no abdominal pain No change in bowel habits noted She had her follow up labs done a few days ago - to discuss her results She would also like to get her flu shot today [facility] Medical History (Updated 03/02/24 @ 09:24 by Jose Alfredo Pandey MD) Elevated LFTs Allergic rhinitis Insomnia Adult general medical exam Medicare annual wellness visit, initial Dysuria Urinary tract infection Cataract Impaired fasting glucose Pure hypercholesterolemia Benign essential hypertension Palpitations Vitamin D deficiency Multinodular thyroid Osteoporosis Anxiety Surgical History History of mandibular surgery History of lobectomy of thyroid Family History Father ALS (amyotrophic lateral sclerosis) Mother Diabetes Social History Housing: House Alcohol intake: current Alcohol intake frequency: holidays/special occasions only Alcohol type: wine Patient Tobacco Use Status: Former Tobacco user Tobacco use type: Cigarette e-Cigarette/Vaping Use: Never Used Second Hand Smoke Exposure: No service: No Current occupational status: retired Cognitive needs: No Hearing needs: No Vision needs: Yes (reading glasses) Questionnaire Thrive Questionnaire Date Thrive assessed: 06/05/23 THRIVE Score: 0 BRIDGETTE-7 AMB Questionnaire BRIDGETTE-7 Date BRIDGETTE - 7 assessed: 06/05/23 Source: Developed by Drs. Niels Pearce, Aspen Gardner, Tyree Ayala and colleagues, with an educational bon from [employer]. Review of Systems Const Reports difficulty sleeping, Denies fatigue, Denies fever(s) and Denies headache(s) ENT Denies dysphagia, Denies dizziness, Denies otalgia, Denies headache(s), Denies neck pain, Denies odynophagia and Denies sore throat Card Denies chest pain, Denies palpitations and Denies dyspnea Resp Denies chest congestion, Denies cough and Denies dyspnea GI Denies abdominal pain, Denies constipation, Denies dysphagia, Denies heartburn, Denies diarrhea, Denies nausea, Denies odynophagia and Denies vomiting Denies hematuria, Denies difficulty voiding, Denies dysuria, Denies urinary incontinence and Denies urinary urgency Musc Denies back pain, Denies arthralgias and Denies neck pain Skin/Breast Denies rash Neuro Denies dizziness and Denies headache(s) Endo Denies fatigue and Denies palpitations Aller/Immun Reports seasonal rhinorrhea Physical exam (Primary Care) Vital Signs: Last Vital Signs Pulse 78 02/11/24 10:09 BP 136/88 02/11/24 10:59 Pulse Ox 97 02/11/24 10:09 Oxygen Delivery Method Room Air 02/11/24 10:09 Tobacco/Smoking Status: Tobacco use Status Tobacco use date assessed 06/05/23 02/11/24 10:12 Patient Tobacco Use Status Former Tobacco user 02/11/24 10:12 Tobacco use type Cigarette 02/11/24 10:12 e-Cigarette/Vaping Use Never Used 02/11/24 10:12 Thrive Assessment: Date of Thrive Assessment Date Thrive assessed 06/05/23 02/11/24 10:12 Const General: no acute distress and alert HENMT Ears: TM's normal bilaterally and EAC's normal Throat: Yes posterior oropharynx normal and Yes tonsils normal (no TP congestion noted) Neck Neck: Yes no lymphadenopathy and Yes supple Thyroid: Thyroid normal Resp Auscultation: clear to auscultation bilaterally, no rales and no wheezes Cardio Rate: regular rate Rhythm: regular rhythm Heart sounds: no murmurs GI Palpation (GI): Soft to palpation and nontender Auscultation: normal bowel sounds General: Yes no CVA tenderness Back/Spine/Pelvis Back: no CVA tenderness Thoracic/Lumbar Spine: No lumbar spinal tenderness Skin Rashes: no rashes Extrem General: Yes no clubbing, cyanosis or edema Office Procedures Flu Questionnaire Does the patient have a severe egg allergy?: No Does the patient have severe life threatening allergies?: No Does the patient have a fever or illness today?: No Has the patient ever had Guillain-Orlinda Syndrome?: No Has the patient ever had any past reaction to a flu shot?: No Immunizations Fluarix Triv [id number] (PF) 45 mcg (15 mcg x 3)/0.5 mL IM syringe Performing Provider: Jose Alfredo Pandey MD [facility] Administered by: SU Andres on 02/11/24 10:16 Dose Route Admin Location Dispensed Lot Number Expiration Date [facility] Planning Consultant 0.5 mL IM Left Deltoid 0.5 mL [id number] 10/12/24 07604-834-83 [employer] VIS Given Date VIS Provided VIS Publication Date 02/11/24 Single Vaccine 20 Eligibility Eligibility Date Funding Source Not [facility] Eligible 02/11/24 Private Results Reviewed Results Reviewed: Laboratory Tests 02/06/24 02/06/24 09:04 09:06 WBC 5.0 Hgb 12.8 Hct 38.6 Plt Count 283 Sodium 143 Potassium 4.0 Creatinine 0.65 Estimated GFR > 60 Fasting Glucose 87 Calcium 9.5 AST 28 ALT 26 Triglycerides 104 Cholesterol 183 LDL Cholesterol, Calc 109 H HDL Cholesterol 54 25-OH Vitamin D Total 38.0 TSH 0.93 Ur Specific [place] >= 1.030 H Urine Protein Negative Urine Glucose (UA) Negative Urine Blood Negative Urine Nitrite Negative Ur Leukocyte Esterase Small (1+) H Coding Level of Care Code Est Pt Level 4 (41130) Diagnoses Pure hypercholesterolemia E78.00 Benign essential hypertension I10 Impaired fasting glucose R73.01 Multinodular thyroid E04.2 Vitamin D deficiency E55.9 Osteoporosis, unspecified osteoporosis type, unspecified pathological fracture presence M81.0 Osteoporosis type: unspecified Presence of current pathological fracture: unspecified Elevated LFTs R79.89 Primary insomnia F51.01 Insomnia type: primary Anxiety F41.9 Assessment & Plan Assessment & Plan (1) Pure hypercholesterolemia: Code(s): E78.00 - Pure hypercholesterolemia, unspecified Category: Medical Plan: Results of her labs done a few days ago reviewed and discussed with patient Reinforced low cholesterol diet Continue Atorvastatin 40 mg QD Will recheck her labs and fasting lipids in 4 months for follow up (2) Benign essential hypertension: Code(s): I10 - Essential (primary) hypertension Category: Medical Plan: Reinforced low sodium diet - goal is systolic BP of at least 130 mm or less Continue Lisinopril 5 mg QD (3) Impaired fasting glucose: Code(s): R73.01 - Impaired fasting glucose Category: Medical Plan: HgbA1c was normal at 4.9% when checked previously; FBS was normal at 87 mg/dl on her labs done a few days ago Reinforced low calorie diet/exercise as tolerated (4) Multinodular thyroid: Code(s): E04.2 - Nontoxic multinodular goiter Category: Medical Plan: FNA and thyroid scan done in the past were normal and thyroid nodules were confirmed to be benign on Bx Will continue to monitor with thyroid ultrasound regularly for follow-up - most recent thyroid ultrasound done in 09/2021 showed (+) nonspecific nodules She was following up with endocrinology previously and was advised at her recent visit with endocrinology in March 2023 that she can just follow up with her PCP and get a follow up thyroid US in 1 to 2 years and return to endocrinology only on an as-needed basis (5) Vitamin D deficiency: Code(s): E55.9 - Vitamin D deficiency, unspecified Category: Medical Plan: Corrected - will continue to monitor Vitamin D level regularly (6) Osteoporosis: Code(s): M81.0 - Age-related osteoporosis without current pathological fracture Category: Medical Qualifiers: Osteoporosis type: unspecified Presence of current pathological fracture: unspecified Qualified Code(s): M81.0 - Age-related osteoporosis without current pathological fracture Plan: Repeat BMD done in September 2021 showed no significant change in BMD from previous done a few years ago in September 2017 Initial BMD done in 2010 showed (+) osteoporosis but BMD has since improved and she is currently in the osteopenic range - S/P Tx with oral bisphosphonate for a total of approximately 5 years; Rx stopped in 02/2018 Patient developed osteonecrosis of the jaw - additional antiresorptive treatment is therefore contraindicated Patient has been off Tx since 02/2018 and anabolic Tx is the only option available to her at this time if additional Tx is needed She is advised to continue for now with optimizing her daily oral calcium intake (is currently on 600 mg daily) Follow up with endocrinology as scheduled (7) Elevated LFTs: Code(s): R79.89 - Other specified abnormal findings of blood chemistry Category: Medical Plan: Patient's LFTs have remained normal on her recent labs - will continue to monitor her LFTs regularly especially since she is on a statin Reinforced weight loss / exercise as tolerated (8) Insomnia: Code(s): G47.00 - Insomnia, unspecified Category: Medical Qualifiers: Insomnia type: primary Qualified Code(s): F51.01 - Primary insomnia Plan: Sleep hygiene reinforced Continue Trazodone 50 mg Q HS PRN (9) Anxiety: Code(s): F41.9 - Anxiety disorder, unspecified Category: Medical Plan: Continue Venlafaxine ER 37.5 mg QD Plan As requested, flu vaccine given to patient today Follow up in 4 months Orders: Orders Influenza [id number] Immunization 02/11/24 Z23 - Encounter for immunization Lipid Panel 4 Months E78.00 - Pure hypercholesterolemia, unspecified Comprehensive [place]. Panel Fast 4 Months E78.00 - Pure hypercholesterolemia, unspecified Complete Blood Count Auto Diff 4 Months D64.9 - Anemia, unspecified
[2024-02-11 10:59] VITALS: BP 136/88
== END 2024-02-11 11:09 | disposition home or self-care (01) ==
LOC: HO.HMCH 09:57
PROVIDERS: PCP Internal Medicine; Visit Provider Internal Medicine
DX: E78.00 Pure hypercholesterolemia, unspecified (principal); I10 Essential (primary) hypertension; R73.01 Impaired fasting glucose; E04.2 Nontoxic multinodular goiter; E55.9 Vitamin D deficiency, unspecified; M81.0 Age-related osteoporosis without current pathological fracture; R79.89 Other specified abnormal findings of blood chemistry; F51.01 Primary insomnia; F41.9 Anxiety disorder, unspecified

== ENCOUNTER → 2024-02-11 09:56 | Outpatient (BNVA) | payer MEDICARE, SELFPAY | PROVIDERS: PCP Internal Medicine; Visit Provider Internal Medicine | DX: Z23 Encounter for immunization (principal); E78.00 Pure hypercholesterolemia, unspecified; D64.9 Anemia, unspecified | CPT/HCPCS: 90471; 90656; 99212 ==

== ENCOUNTER 2024-03-30 15:17 | Outpatient (AMB) | payer MEDICARE, SELFPAY ==
[2024-03-30 15:23] VITALS: BP 142/82; PULSE 78; O2SAT 98
--- NOTE | 2024-03-30 15:23 | MHC.PC.OV ---
Vital Signs 03/30/24 15:23 03/30/24 16:04 Height 5 ft 3 in BMI Reason not done Patient refused/unable BP 142/82 H 130/80 Blood Pressure Location Lt brachial Lt brachial Position Sitting Sitting Pulse 78 Pulse Source Pulse Oximeter Pulse Oximetry (%) 98 Oxygen Delivery Method Room Air Intake Visit Reasons: irregular blood pressure Software Program Manager Required: No Accompanied by: Self / Same As Patient Allergies latex Allergy (Unknown, Verified 03/30/24 15:57) unknown Medication List - Last Reconciled 03/30/24 by Jose Alfredo Pandey MD atorvastatin 40 mg PO DAILY calcium carbonate (Calcium 600) 600 mg PO DAILY lisinopril 5 mg PO DAILY 90 days loratadine 10 mg PO DAILY PRN 90 days trazodone 50 mg PO BEDTIME PRN venlafaxine ER 37.5 mg PO DAILY Tobacco use date assessed: 03/30/24 Last assessed Fall Risk: 03/30/24 Dental Screening Dental Screen Date: 03/30/24 HPI irregular blood pressure HPI Details Patient comes in today for evaluation and management of very erratic and widely fluctuating blood pressure readings over the past few days Patient states that she is taking her BP med Rx regularly as prescribed She denies any headaches or dizziness Denies any chest pains, no shortness of breath No nausea/vomiting, no abdominal pain No change in bowel habits noted [facility] Medical History Elevated LFTs Allergic rhinitis Insomnia Adult general medical exam Medicare annual wellness visit, initial Dysuria Urinary tract infection Cataract Impaired fasting glucose Pure hypercholesterolemia Benign essential hypertension Palpitations Vitamin D deficiency Multinodular thyroid Osteoporosis Anxiety Surgical History History of mandibular surgery History of lobectomy of thyroid Family History Father ALS (amyotrophic lateral sclerosis) Mother Diabetes Social History Housing: House Alcohol intake: current Alcohol intake frequency: holidays/special occasions only Alcohol type: wine Patient Tobacco Use Status: Former Tobacco user Tobacco use type: Cigarette e-Cigarette/Vaping Use: Never Used Second Hand Smoke Exposure: No service: No Current occupational status: retired Cognitive needs: No Hearing needs: No Vision needs: Yes (reading glasses) Questionnaire PHQ-9 Over the last 2 weeks, how often have you been bothered by any of the following problems? 1. Little interest or pleasure in doing things: not at all 2. Feeling down, depressed, or hopeless: not at all 3. Trouble falling or staying asleep, or sleeping too much: not at all 4. Feeling tired or having little energy: not at all 5. Poor appetite or overeating: not at all 6. Feeling bad about yourself - or that you are a failure or have let yourself or your family down: not at all 7. Trouble concentrating on things, such as reading the newspaper or watching television: not at all 8. Moving or speaking so slowly that other people could have noticed. Or the opposite - being so fidgety or restless that you have been moving around a lot more than usual: not at all 9. Thoughts that you would be better off or of hurting yourself in some way: not at all Total score: 0 Depression Screening Interpretation: Negative Depression Screening Done: Yes 02480 - PHQ-9 Billing: Yes Source: Developed by Drs. Niels Pearce, Aspen Gardner, Tyree Ayala and colleagues, with an educational bon from [employer]. Thrive Questionnaire Date Thrive assessed: 03/30/24 I am a: Patient What is your living situation today?: I have a steady place to live Within the past 12 months, did the food you bought not last and you didn't have the money to get more?: Never true Within the past 12 months, did you worry whether your food would run out before you got money to buy more?: Never true Do you have trouble paying for medicines?: No Do you have trouble getting transportation to medical appointments?: No Do you have trouble paying your heating and electricity bill?: No Do you have trouble taking care of your child, family member or friend?: No Do you have trouble with day-to-day activities such as bathing, preparing meals, shopping, managing finances, etc.?: No Are you currently unemployed and looking for a job?: No Are you interested in more education?: No Please select the resources that you would like help with: None Currently or been in a relationship where the following occur: No concerns reported THRIVE Score: 0 AUDIT C Alcohol Use Questionnaire (AUDIT-C) 1. How often do you have a drink containing alcohol?: Never 3. How often do you have six or more drinks on one occasion?: Never Total Score: 0 Score Reviewed/Action Taken: Yes BRIDGETTE-7 AMB Questionnaire BRIDGETTE-7 Date BRIDGETTE - 7 assessed: 03/30/24 Feeling nervous, anxious, or on edge: 0 = Not at all Not being able to stop or control worryin = Not at all Worrying too much about different things: 0 = Not at all Trouble relaxin = Not at all Being so restless that it is hard to sit still: 0 = Not at all Becoming easily annoyed or irritable: 0 = Not at all Feeling afraid as if something awful might happen: 0 = Not at all Total BRIDGETTE-7 score (0-4 normal; 5-9 mild; 10-14 moderate; 15-21 severe): 0 Source: Developed by Drs. Niels Pearce, Aspen Gardner, Tyree Ayala and colleagues, with an educational bon from [employer]. Review of Systems Const Reports difficulty sleeping, Denies fatigue, Denies fever(s) and Denies headache(s) ENT Denies dysphagia, Denies dizziness, Denies otalgia, Denies headache(s), Denies neck pain, Denies odynophagia and Denies sore throat Card Denies chest pain, Denies palpitations and Denies dyspnea Resp Denies chest congestion, Denies cough and Denies dyspnea GI Denies abdominal pain, Denies constipation, Denies dysphagia, Denies heartburn, Denies diarrhea, Denies nausea, Denies odynophagia and Denies vomiting Denies hematuria, Denies difficulty voiding, Denies dysuria, Denies urinary incontinence and Denies urinary urgency Musc Denies back pain, Denies arthralgias and Denies neck pain Skin/Breast Denies rash Neuro Denies dizziness and Denies headache(s) Endo Denies fatigue and Denies palpitations Physical exam (Primary Care) Vital Signs: Last Vital Signs Pulse 78 03/30/24 15:23 BP 130/80 03/30/24 16:04 Pulse Ox 98 03/30/24 15:23 Oxygen Delivery Method Room Air 03/30/24 15:23 Tobacco/Smoking Status: Tobacco use Status Tobacco use date assessed 03/30/24 03/30/24 15:28 Patient Tobacco Use Status Former Tobacco user 03/30/24 15:28 Tobacco use type Cigarette 03/30/24 15:28 e-Cigarette/Vaping Use Never Used 03/30/24 15:28 PHQ-9: PHQ-9 Score PHQ-9: Total score 0 04/06/24 00:06 Depression Screening Interpretation: Negative Thrive Assessment: Date of Thrive Assessment Date Thrive assessed 03/30/24 03/30/24 15:28 Currently or been in a relationship where the following occur: No concerns reported Const General: no acute distress and alert HENMT Ears: TM's normal bilaterally and EAC's normal Throat: Yes posterior oropharynx normal and Yes tonsils normal (no TP congestion noted) Neck Neck: Yes supple and No lymphadenopathy Thyroid: Thyroid normal Resp Auscultation: clear to auscultation bilaterally, no rales and no wheezes Cardio Rate: regular rate Rhythm: regular rhythm Heart sounds: no murmurs GI Palpation (GI): Soft to palpation and nontender Auscultation: normal bowel sounds General: Yes no CVA tenderness Back/Spine/Pelvis Back: no CVA tenderness Thoracic/Lumbar Spine: No lumbar spinal tenderness Skin Rashes: no rashes Extrem General: Yes no clubbing, cyanosis or edema Coding Level of Care Code Est Pt Level 3 (46450) Diagnoses Benign essential hypertension I10 Anxiety F41.9 Additional Codes PHQ-9 - 77762 - PHQ-9 Billing: Yes ([id number]) Assessment & Plan Assessment & Plan (1) Benign essential hypertension: Code(s): I10 - Essential (primary) hypertension Category: Medical Plan: Reinforced low sodium diet - goal is systolic BP of at least 130 mm or less Continue Lisinopril 5 mg QD Due to wide fluctuations in her BP lately, will send patient for a 12 lead EKG for further evaluation Have advised her that if her EKG comes back normal, no further recommendations or tests is needed at this time but if her EKG shows some abnormalities, will then send her for an echocardiogram for further evaluation (2) Anxiety: Code(s): F41.9 - Anxiety disorder, unspecified Category: Medical Plan: Continue Venlafaxine ER 37.5 mg QD Plan Follow up as scheduled in May 2024 Orders: Orders ECG 12 lead EKG 03/31/24 I49.9 - Cardiac arrhythmia, unspecified
[2024-03-30 16:04] VITALS: BP 130/80
== END 2024-03-30 16:42 | disposition home or self-care (01) ==
PROVIDERS: PCP Internal Medicine; Visit Provider Internal Medicine
DX: I10 Essential (primary) hypertension (principal); F41.9 Anxiety disorder, unspecified

== ENCOUNTER → 2024-03-30 15:17 | Outpatient (BNVA) | payer MEDICARE, SELFPAY | PROVIDERS: PCP Internal Medicine; Visit Provider Internal Medicine | DX: F41.9 Anxiety disorder, unspecified (principal); I49.9 Cardiac arrhythmia, unspecified; Z79.899 Other long term (current) drug therapy | CPT/HCPCS: 96127; 99212 ==

== ENCOUNTER → 2024-03-31 08:36 | Outpatient (REF) | payer MEDICARE, SELFPAY ==
--- NOTE | 2024-03-31 08:39 | ECG_ITS ---
Test Reason : ARRHYTHMIA Blood Pressure : / mmHG Vent. Rate : 065 BPM Atrial Rate : 065 BPM P-R Int : 160 ms QRS Dur : 076 ms QT Int : 406 ms P-R-T Axes : 066 062 067 degrees QTc Int : 422 ms Normal sinus rhythm Normal ECG When compared with ECG of 28-JUN-2022 10:46, No significant change was found Referred By: Jose Alfredo Pandey Electronically Signed By:MEGAN VARNER
== END ==
LOC: HO.CARD 08:36
PROVIDERS: PCP Internal Medicine; Visit Provider Internal Medicine
DX: I49.9 Cardiac arrhythmia, unspecified (principal)
CPT/HCPCS: 93005

== ENCOUNTER → 2024-03-31 08:39 | Outpatient (BNV) | payer MEDICARE, SELFPAY | PROVIDERS: PCP Internal Medicine; Visit Provider Internal Medicine | DX: I49.9 Cardiac arrhythmia, unspecified (principal) | CPT/HCPCS: 93010 ==

== ENCOUNTER 2024-10-09 08:03 | Outpatient (REF) | payer MEDICARE, SELFPAY ==
--- OUTSIDE RECORDS SUMMARY | 2024-10-09 08:05 | XMS_ITS | Patient Health Record ---
Author Organization [facility] Address [address] [place] [address] Care Team Providers Care White Metal Caster Name Role Phone Dannie BANGURA, [place] Primary Care Provider Niels Grimes Unavailable [phone] Allergies Allergen (clinical drug ingredient) Drug/Non Drug Allergy documented on EMR Reaction Allergy Type Onset Date Status Latex Latex (uncoded) Unknown Allergy Acti ve Reason For Referral No Information Medications Medication SIG (Take, Route, Frequency, Duration) Notes Start Date End Date Status B Complex Active Vitamin D Active MoviPrep 100 GM as directed Orally 03/16/20110 04/2024 Active Simvastatin 40mg Act venkatesh Alendronate Sodium 70mg Active Calcium 1500 Active Problems Problem Type SNOMED Code ICD Code Onset Dates Problem Status W/U Status Risk Notes Problem Special screening for malignant neoplasms, colon (V76.51) Active confirmed Plan Of Treatment Future Test Test Name Order Date COLONOSCOPY 03/16/2011 Insurance Providers Payer Name Payer Address Payer Phone Subscriber Number Group Number Insured Name Patient Relationship to Insured Coverage Start Date Coverage End Date [facility] [address] ANNAMARIA FU [id number] AMISH RENDON Self - patient is the insured Medical (General) History Medical History History ICD Code Hyperlidemia Denies [place],DM,CVA,Lung disease,renal dise ase Surgical History Surgery Date(Month/Year) Removal of benign thyroid nodule
[2024-10-09 08:19] LABS: MANUAL DIFF FLAG NO
[2024-10-09 08:54] LABS: Eosinophils Percent Auto 0.8 % (0-4); Hematocrit 39.7 % (37.0-47.0); Hemoglobin 13.1 g/dl (12.0-16.0); Imm Gran Abs Auto 0.02 X10*3/uL (0.00-0.03); Imm Gran Pct Auto 0.4 % (0.0-0.4); Lymphocytes Percent Auto 41.5 % (20-40); Mean Corpuscular Hemoglobin 30.9 pg (27.0-33.0); Mean Corpuscular Volume 93.6 fL (80.0-98.0); Mean Platelet Volume 9.6 fL (9.4-12.3); Monocytes Absolute Auto 0.4 X10*3/uL (0.1-1.2); Monocytes Percent Auto 8.8 % (2-11); Neutrophils Absolute Auto 2.3 x10*3/uL (2.0-8.3); Neutrophils Percent Auto 48.5 % (45-73); Platelet Count 325 X10*3/uL (160-400); Red Blood Count 4.24 X10*6/uL (4.20-5.50); White Blood Count 4.8 X10*3/uL (4.8-10.8)
[2024-10-09 09:31] LABS: Alanine Aminotransferase 31 U/L (0-31); Albumin Level 4.2 g/dL (3.5-5.0); Alkaline Phosphatase 68 U/L (39-117); Anion Gap 9 (12-20); Aspartate Amino Transferase 34 U/L (5-31); Bilirubin Total 0.4 mg/dL (0.0-1.0); Blood Urea Nitrogen 12 mg/dL (9-16); Calcium 9.2 mg/dL (8.4-10.2); Carbon Dioxide 28 mmol/L (22-29); Chloride 106 mmol/L (96-108); Cholesterol 185 mg/dL (<200); Estimated Glomerular Filt Rate > 60; Glucose Fasting 83 mg/dL (60-99); HDL Cholesterol 56 mg/dL (>40); LDL Cholesterol Calculated 108 mg/dL (<100); Potassium 4.1 mmol/L (3.3-5.1); Sodium 139 mmol/L (135-145); Total Protein 6.5 g/dL (6.5-8.0); Triglycerides 108 mg/dL (<150)
[2024-10-09 09:50] LABS: TSH reflex Free T4 3.18 uIU/mL (0.32-4.0); Vitamin D 25-OH Total 36.7 ng/mL (>30)
== END 2024-10-09 08:04 | disposition home or self-care (01) ==
LOC: HO.LAB 08:03
PROVIDERS: PCP Internal Medicine; Visit Provider Internal Medicine
DX: E78.00 Pure hypercholesterolemia, unspecified (principal); E55.9 Vitamin D deficiency, unspecified; D64.9 Anemia, unspecified
CPT/HCPCS: 36415; 80053; 80061; 82306; 84443; 85025

== ENCOUNTER 2024-10-13 15:27 | Outpatient (AMB) | payer MEDICARE, SELFPAY ==
[2024-10-13 15:29] VITALS: BP 146/92; PULSE 86; O2SAT 98
--- NOTE | 2024-10-13 15:29 | MHC.PC.OV ---
Vital Signs 10/13/24 15:29 10/13/24 16:07 Height 5 ft 3 in BMI Reason not done Patient refused/unable BP 146/92 H 136/86 Blood Pressure Location Lt brachial Lt brachial Position Sitting Sitting Pulse 86 Pulse Source Pulse Oximeter Pulse Oximetry (%) 98 Oxygen Delivery Method Room Air Intake Visit Reasons: hyperlipidemia, HTN Candy Butcher Required: No Accompanied by: Self / Same As Patient Allergies latex Allergy (Unknown, Verified 10/13/24 15:59) unknown Medication List - Last Reconciled 10/13/24 by Jose Alfredo Pandey MD atorvastatin 40 mg PO DAILY calcium carbonate (Calcium 600) 600 mg PO DAILY lisinopril 5 mg PO DAILY 90 days loratadine 10 mg PO DAILY PRN 90 days trazodone 50 mg PO BEDTIME PRN venlafaxine ER 37.5 mg PO DAILY Tobacco use date assessed: 10/13/24 Fall risk assessment: No Falls in past year Last assessed Fall Risk: 10/13/24 Dental Screening Dental Screen Date: 10/13/24 Did you have a dental visit in the last 12 months?: Yes Did you have a dental problem in the last 6 months where you did not have access to dental care?: No Was dental information given to patient?: Patient has dentist HPI hyperlipidemia, HTN HPI Details Patient comes in today for her follow up visit States that she feels okay She denies any headaches or dizziness Denies any chest pains, no SOB No nausea/vomiting, no abdominal pain No change in bowel habits noted She had her follow up labs done a few days ago - to discuss her results [facility] Medical History Elevated LFTs Allergic rhinitis Insomnia Adult general medical exam Medicare annual wellness visit, initial Dysuria Urinary tract infection Cataract Impaired fasting glucose Pure hypercholesterolemia Benign essential hypertension Palpitations Vitamin D deficiency Multinodular thyroid Osteoporosis Anxiety Surgical History History of mandibular surgery History of lobectomy of thyroid Family History Father ALS (amyotrophic lateral sclerosis) Mother Diabetes Social History Housing: House Alcohol intake: current Alcohol intake frequency: holidays/special occasions only Alcohol type: wine Patient Tobacco Use Status: Former Tobacco user Tobacco use type: Cigarette e-Cigarette/Vaping Use: Never Used Second Hand Smoke Exposure: No service: No Current occupational status: retired Cognitive needs: No Hearing needs: No Vision needs: Yes (reading glasses) Questionnaire PHQ-9 Over the last 2 weeks, how often have you been bothered by any of the following problems? 1. Little interest or pleasure in doing things: not at all 2. Feeling down, depressed, or hopeless: not at all 3. Trouble falling or staying asleep, or sleeping too much: not at all 4. Feeling tired or having little energy: not at all 5. Poor appetite or overeating: not at all 6. Feeling bad about yourself - or that you are a failure or have let yourself or your family down: not at all 7. Trouble concentrating on things, such as reading the newspaper or watching television: not at all 8. Moving or speaking so slowly that other people could have noticed. Or the opposite - being so fidgety or restless that you have been moving around a lot more than usual: not at all 9. Thoughts that you would be better off or of hurting yourself in some way: not at all Total score: 0 Depression Screening Interpretation: Negative Depression Screening Done: Yes 20503 - PHQ-9 Billing: Yes Source: Developed by Drs. Niels Pearce, Aspen Gardner, Tyree Ayala and colleagues, with an educational bon from [employer]. Thrive Questionnaire Date Thrive assessed: 10/13/24 I am a: Patient Within the past 12 months, did the food you bought not last and you didn't have the money to get more?: Never true Within the past 12 months, did you worry whether your food would run out before you got money to buy more?: Never true Do you have trouble paying for medicines?: No Do you have trouble getting transportation to medical appointments?: No Do you have trouble paying your heating and electricity bill?: No Do you have trouble taking care of your child, family member or friend?: No Do you have trouble with day-to-day activities such as bathing, preparing meals, shopping, managing finances, etc.?: No Are you currently unemployed and looking for a job?: No Are you interested in more education?: No Please select the resources that you would like help with: None Currently or been in a relationship where the following occur: No concerns reported THRIVE Score: 0 AUDIT C Alcohol Use Questionnaire (AUDIT-C) 1. How often do you have a drink containing alcohol?: 2-4 times a month 2. How many drinks containing alcohol do you have on a typical day when you are drinking?: 1 or 2 3. How often do you have six or more drinks on one occasion?: Never Total Score: 2 Score Reviewed/Action Taken: Yes BRIDGETTE-7 AMB Questionnaire BRIDGETTE-7 Date BRIDGETTE - 7 assessed: 10/13/24 Feeling nervous, anxious, or on edge: 0 = Not at all Not being able to stop or control worryin = Not at all Worrying too much about different things: 0 = Not at all Trouble relaxin = Not at all Being so restless that it is hard to sit still: 0 = Not at all Becoming easily annoyed or irritable: 0 = Not at all Feeling afraid as if something awful might happen: 0 = Not at all Total BRIDGETTE-7 score (0-4 normal; 5-9 mild; 10-14 moderate; 15-21 severe): 0 Source: Developed by Drs. Niels Pearce, Aspen Gardner, Tyree Ayala and colleagues, with an educational bon from [employer]. Review of Systems Const Reports difficulty sleeping, Denies fatigue, Denies fever(s) and Denies headache(s) ENT Denies dysphagia, Denies dizziness, Denies otalgia, Denies headache(s), Denies neck pain, Denies odynophagia and Denies sore throat Card Denies chest pain, Denies palpitations and Denies dyspnea Resp Denies chest congestion, Denies cough and Denies dyspnea GI Denies abdominal pain, Denies constipation, Denies dysphagia, Denies heartburn, Denies diarrhea, Denies nausea, Denies odynophagia and Denies vomiting Denies hematuria, Denies difficulty voiding, Denies dysuria, Denies urinary incontinence and Denies urinary urgency Musc Denies back pain, Denies arthralgias and Denies neck pain Skin/Breast Denies rash Neuro Denies dizziness and Denies headache(s) Endo Denies fatigue and Denies palpitations Physical exam (Primary Care) Vital Signs: Last Vital Signs Pulse 86 10/13/24 15:29 BP 136/86 10/13/24 16:07 Pulse Ox 98 10/13/24 15:29 Oxygen Delivery Method Room Air 10/13/24 15:29 Tobacco/Smoking Status: Tobacco use Status Tobacco use date assessed 10/13/24 10/13/24 15:36 Patient Tobacco Use Status Former Tobacco user 10/13/24 15:36 Tobacco use type Cigarette 10/13/24 15:36 e-Cigarette/Vaping Use Never Used 10/13/24 15:36 PHQ-9: PHQ-9 Score PHQ-9: Total score 0 10/13/24 16:04 Depression Screening Interpretation: Negative Thrive Assessment: Date of Thrive Assessment Date Thrive assessed 10/13/24 10/13/24 15:36 Currently or been in a relationship where the following occur: No concerns reported Const General: no acute distress and alert HENMT Ears: TM's normal bilaterally and EAC's normal Throat: Yes posterior oropharynx normal and Yes tonsils normal (no TP congestion noted) Neck Neck: Yes supple and No lymphadenopathy Thyroid: Thyroid normal Resp Auscultation: clear to auscultation bilaterally, no rales and no wheezes Cardio Rate: regular rate Rhythm: regular rhythm Heart sounds: no murmurs GI Palpation (GI): Soft to palpation and nontender Auscultation: normal bowel sounds General: Yes no CVA tenderness Back/Spine/Pelvis Back: no CVA tenderness Thoracic/Lumbar Spine: No lumbar spinal tenderness Skin Rashes: no rashes Extrem General: Yes no clubbing, cyanosis or edema Results Reviewed Results Reviewed: Laboratory Tests 10/09/24 08:15 WBC 4.8 Hgb 13.1 Hct 39.7 Plt Count 325 Sodium 139 Potassium 4.1 Creatinine 0.62 Estimated GFR > 60 Fasting Glucose 83 Calcium 9.2 AST 34 H ALT 31 Triglycerides 108 Cholesterol 185 LDL Cholesterol, Calc 108 H HDL Cholesterol 56 25-OH Vitamin D Total 36.7 TSH 3.18 Coding Level of Care Code Est Pt Level 4 (83014) Diagnoses Pure hypercholesterolemia E78.00 Benign essential hypertension I10 Impaired fasting glucose R73.01 Multinodular thyroid E04.2 Vitamin D deficiency E55.9 Osteoporosis, unspecified osteoporosis type, unspecified pathological fracture presence M81.0 Osteoporosis type: unspecified Presence of current pathological fracture: unspecified Elevated LFTs R79.89 Primary insomnia F51.01 Insomnia type: primary Anxiety F41.9 Additional Codes PHQ-9 - 01394 - PHQ-9 Billing: Yes ([id number]) Assessment & Plan Assessment & Plan (1) Pure hypercholesterolemia: Code(s): E78.00 - Pure hypercholesterolemia, unspecified Category: Medical Plan: Results of her labs done a few days ago reviewed and discussed with patient Reinforced low cholesterol diet Continue Atorvastatin 40 mg QD Will recheck her labs and fasting lipids in 4 months for follow up (2) Benign essential hypertension: Code(s): I10 - Essential (primary) hypertension Category: Medical Plan: Reinforced low sodium diet - goal is systolic BP of at least 130 mm or less Continue Lisinopril 5 mg QD (3) Impaired fasting glucose: Code(s): R73.01 - Impaired fasting glucose Category: Medical Plan: HgbA1c was normal at 4.9% when checked previously; FBS is currently normal at 83 mg/dl on her labs done a few days ago Reinforced low calorie diet/exercise as tolerated (4) Multinodular thyroid: Code(s): E04.2 - Nontoxic multinodular goiter Category: Medical Plan: FNA and thyroid scan done in the past were normal and thyroid nodules were confirmed to be benign on Bx Will continue to monitor with thyroid ultrasound regularly for follow-up - most recent thyroid ultrasound done in 09/2021 showed (+) nonspecific nodules She was following up with endocrinology previously and was advised at her recent visit with endocrinology in March 2023 that she can just follow up with her PCP and get a follow up thyroid US in 1 to 2 years and return to endocrinology only on an as-needed basis (5) Vitamin D deficiency: Code(s): E55.9 - Vitamin D deficiency, unspecified Category: Medical Plan: Corrected - will continue to monitor Vitamin D level regularly (6) Osteoporosis: Code(s): M81.0 - Age-related osteoporosis without current pathological fracture Category: Medical Qualifiers: Osteoporosis type: unspecified Presence of current pathological fracture: unspecified Qualified Code(s): M81.0 - Age-related osteoporosis without current pathological fracture Plan: Repeat BMD done in September 2021 showed no significant change in BMD from previous done a few years ago in September 2017 Initial BMD done in 2010 showed (+) osteoporosis but BMD has since improved and she is currently in the osteopenic range - S/P Tx with oral bisphosphonate for a total of approximately 5 years; Rx stopped in 02/2018 Patient developed osteonecrosis of the jaw - additional antiresorptive treatment is therefore contraindicated Patient has been off Tx since 02/2018 and anabolic Tx is the only option available to her at this time if additional Tx is needed She is advised to continue for now with optimizing her daily oral calcium intake (is currently on 600 mg daily) Follow up with endocrinology as scheduled (7) Elevated LFTs: Code(s): R79.89 - Other specified abnormal findings of blood chemistry Category: Medical Plan: Patient's LFTs have remained normal on her recent labs - will continue to monitor her LFTs regularly especially since she is on a statin Reinforced weight loss / exercise as tolerated (8) Insomnia: Code(s): G47.00 - Insomnia, unspecified Category: Medical Qualifiers: Insomnia type: primary Qualified Code(s): F51.01 - Primary insomnia Plan: Sleep hygiene reinforced Continue Trazodone 50 mg Q HS PRN (9) Anxiety: Code(s): F41.9 - Anxiety disorder, unspecified Category: Medical Plan: Continue Venlafaxine ER 37.5 mg QD Plan Follow up in 4 months Orders: Orders Comprehensive [place]. Panel Fast 4 Months E78.00 - Pure hypercholesterolemia, unspecified Lipid Panel 4 Months E78.00 - Pure hypercholesterolemia, unspecified UA CC w/rflx Micro + Cult 4 Months R30.0 - Dysuria TSH reflex Free T4 4 Months E78.00 - Pure hypercholesterolemia, unspecified Complete Blood Count Auto Diff 4 Months D64.9 - Anemia, unspecified
[2024-10-13 16:07] VITALS: BP 136/86
--- OUTSIDE RECORDS SUMMARY | 2024-10-13 16:12 | XMS_ITS | Patient Health Record ---
Author Organization [facility] Address [address] [place] [address] Care Team Providers Care Lining Closer Name Role Phone Dannie BANGURA, [place] Primary Care Provider Niels Grimes Unavailable [phone] Allergies Allergen (clinical drug ingredient) Drug/Non Drug [...] Problem Status W/U Status Risk Notes Problem Screening for malignant neoplasm of colon ([id number]) Special screening for malignant neoplasms, colon (V76.51) Active confirmed Plan Of Treatment Future Test Test Name Order Date COLONOSCOPY 03/16/2011 Insurance Providers Payer Name Payer Address Payer Phone Subscriber Number Group Number Insured Name Patient Relationship to Insured Coverage Start Date Coverage End Date [facility] [address] ANNAMARIA FU [id number] AMISH RENDON Self - patient is the insured Medical (General) History Medical History History ICD Code Hyperlidemia Denies [place],DM,CVA,Lung disease,renal dise ase Surgical History Surgery Date(Month/Year) Removal of benign thyroid nodule
== END 2024-10-13 16:10 | disposition home or self-care (01) ==
LOC: HO.HMCH 15:28
PROVIDERS: PCP Internal Medicine; Visit Provider Internal Medicine
DX: E78.00 Pure hypercholesterolemia, unspecified (principal); I10 Essential (primary) hypertension; R73.01 Impaired fasting glucose; E04.2 Nontoxic multinodular goiter; E55.9 Vitamin D deficiency, unspecified; M81.0 Age-related osteoporosis without current pathological fracture; R79.89 Other specified abnormal findings of blood chemistry; F51.01 Primary insomnia; F41.9 Anxiety disorder, unspecified

== ENCOUNTER → 2024-10-13 15:27 | Outpatient (BNVA) | payer MEDICARE, SELFPAY | PROVIDERS: PCP Internal Medicine; Visit Provider Internal Medicine | DX: I10 Essential (primary) hypertension (principal); E78.00 Pure hypercholesterolemia, unspecified; R73.01 Impaired fasting glucose; E04.2 Nontoxic multinodular goiter; E55.9 Vitamin D deficiency, unspecified; M81.0 Age-related osteoporosis without current pathological fracture; R79.89 Other specified abnormal findings of blood chemistry; F51.01 Primary insomnia; F41.9 Anxiety disorder, unspecified | CPT/HCPCS: 96127; 99212 ==